=== PATIENT | female | born 1970 | race Caucasian/White ===

== ENCOUNTER 2017-03-02 12:40 | Emergency (ER) | payer BC ==
--- NOTE | 2017-03-02 12:58 | Emergency Department Record ---
History of Present Illness - General Chief Complaint: Arrythmia/Palpitations Stated Complaint: A-fib Time Seen by Provider: 03/02/17 12:52 Source: Patient Mode of Arrival: Ambulatory Limitations: No limitations - History of Present Illness Initial Comments: 46 yo female presents to ED with a CC of palpitations and fatigue that began 2 days ago, worsened this morning. Patient reports a history of intermittent palpitations that she is able to resolve by bearing down, is unaware of previous diagnosis of SVT or atrial fibrillation. Patient reports a history of aortic stenosis s/p repair as well as mechanical heart valve replacement. MD Complaint: Palpitations Onset/Timin -: Minutes(s) Context: Occurred during rest Arrythmia History: Atrial fibrillation - Related Data Home Medications Medication Instructions Recorded Confirmed Last Taken Aspirin Chewable 81 mg PO DAILY 04/13/14 03/02/17 1 Day Ago Diltiazem HCl [Diltiazem 12Hr ER] 60 mg PO DAILY 04/13/14 03/02/17 1 Day Ago Metoprolol Succinate 25 mg PO DAILY 04/13/14 03/02/17 1 Day Ago Warfarin Sodium 2.5 mg PO DAILY 04/13/14 03/02/17 1 Day Ago Alprazolam [Alprazolam] 0.5 mg PO ASDIR PRN 12/09/14 03/02/17 1 Day Ago Allergies Allergy/AdvReac Type Severity Reaction Status Date / Time metoclopramide HCl AdvReac ALTERED Verified 03/02/17 12:53 [From Reglan] MENTAL STATUS phenazopyridine HCl AdvReac NAUSEA AND Verified 03/02/17 12:53 [From Pyridium] VOMITING actavis Allergy RASH Uncoded 03/02/17 12:53 Travel Screening - Travel/Exposure Within Last 30 Days Have you traveled within the last 30 days?: No - Travel/Exposure Within Last Year Have you traveled outside the [place] in the last year?: No - Additonal Travel Details Have you been exposed to anyone with a communicable illness?: No - Travel Symptoms Symptom Screening: None Review of Systems Constitutional: Denies: Chills, Fever, Malaise, Night sweats Eyes: Denies: Eye discharge, Eye pain ENT: Denies: Congestion, Ear pain Respiratory: Denies: Cough, Dyspnea Cardiovascular: Reports: Palpitations. Denies: Chest pain, Dyspnea on exertion Endocrine: Denies: Fatigue, Heat or cold intolerance Gastrointestinal: Denies: Abdominal pain, Nausea, Vomiting Genitourinary: Denies: Dysuria, Frequency, Incontinence, Retention Musculoskeletal: Denies: Arthralgia, Back pain, Gout, Joint swelling Skin: Denies: Bruising, Change in color Neurological: Denies: Abnormal gait, Confusion, Headache, Seizure Psychiatric: Denies: Anxiety Hematological/Lymphatic: Reports: Easy bleeding. Denies: Anemia, Blood Clots Past Medical History - SOCIAL HISTORY Smoking Status: Current every day smoker Alcohol Use: Occassional Drug Use: None - RESPIRATORY Hx Respiratory Disorders: No - CARDIOVASCULAR Hx Cardio Disorders: Yes Hx Irregular Heartbeat: Yes (A-fib) Hx Palpitations: Yes Comment:: aortic stenosis, aneurysm - NEURO Hx Neuro Disorders: No - GI Hx GI Disorders: Yes Hx Reflux: Yes - Hx Genitourinary Disorders: No - ENDOCRINE Hx Endocrine Disorders: No - MUSCULOSKELETAL Hx Musculoskeletal Disorders: No - PSYCH Hx Psych Problems: No - HEMATOLOGY/ONCOLOGY Hx Hematology/Oncology Disorders: No Family Medical History Any Significant Family History?: Yes Hx Heart Disease: Brother/Sister Physical Exam - General General Appearance: Alert, Oriented x3, Cooperative, Moderate distress Limitations: No limitations - Head Head exam: Atraumatic, Normocephalic, Normal inspection Head exam detail: negative: Abrasion, Contusion, Mena's sign, General tenderness, Hematoma, Laceration - Eye Eye exam: Normal appearance. negative: Conjunctival injection, Periorbital swelling, Periorbital tenderness, Scleral icterus - ENT Ear exam: negative: Auricular hematoma, Auricular trauma Nasal Exam: negative: Active bleeding, Discharge, Dried blood, Foreign body Mouth exam: negative: Drooling, Laceration, Muffled voice, Tongue elevation - Neck Neck exam: Normal inspection. negative: Meningismus, Tenderness - Respiratory Respiratory exam: Normal lung sounds bilaterally. negative: Rales, Respiratory distress, Rhonchi, Stridor - Cardiovascular Cardiovascular Exam: Normal rhythm, Normal heart sounds, Tachycardia - GI/Abdominal GI/Abdominal exam: Soft. negative: Rebound, Rigid, Tenderness - Rectal Rectal exam: Deferred - exam: Deferred - Extremities Extremities exam: Normal inspection. negative: Calf tenderness, Pedal edema, Tenderness - Back Back exam: Denies: CVA tenderness (R), CVA tenderness (L) - Neurological Neurological exam: Alert, Normal gait, Oriented X3 - Psychiatric Psychiatric exam: Anxious - Skin Skin exam: Normal color. negative: Abrasion Type of lesion: negative: abrasion Course Vital Signs 03/02/17 12:42 Temperature 97.5 F L Pulse Rate 183 H Respiratory 24 Rate Blood Pressure 162/110 Pulse Ox 99 - Reevaluation(s) Reevaluation #1: 03/02/17 12:52 EKG: SVT 188 Normal axis, normal intervals ST depression V3-V6, rate related While talking with the patient during IV start, patient converted to NSR. repeat EKG ordered. Reevaluation #2: 03/02/17 13:04 Repeat EKG: NSR 83 Normal axis, Normal intervals Mild ST depression V5, V6 Unchanged from 04/13/14 Reevaluation #3: 03/02/17 13:33 Labs reviewed, Hgb 11.5, INR 2.42, electrolytes and magnesium are normal. Troponin pending. Reevaluation #4: 03/02/17 13:48 Troponin resulted and is negative. Patient has not attempted to go back into SVT while in the ED, and appears stable for discharge at this time with instructions to call Dr. Loredo for follow-up in 1-3 days as he may want to increase either the patient's Diltiazem or Metoprolol at home. Patient appears stable for discharge at this time. Medical Decision Making - Lab Data Result diagrams: 03/02/17 12:52 03/02/17 12:52 Critical Care Time Critical Care Time: Yes Total Critical Care Time: 35 Critical Care Time: Diagnosis and treatment for SVT, unstable heart rate. Disposition Disposition: Discharge Clinical Impression: SVT (supraventricular tachycardia) Disposition: Home, Self-Care Condition: (2) Stable Instructions: Supraventricular Tachycardia (ED) Additional Instructions: return to ED if your symptoms worsen or if you have any concerns. Follow-up with Dr. Loredo in 1-3 days as directed. Forms: Patient Portal Access Time of Disposition: 13:50
[2017-03-02] MEDS ORDERED: 0.9 % SODIUM CHLORIDE 1000ML 500 ML IV SCH (13:00)
[2017-03-02 13:04] LABS: BASO % 0.2 % (0-6); EOS % 1.1 % (0-6); GRAN % 61.3 % (47-80); HEMATOCRIT 37.5 % (35.0-47.0); HEMOGLOBIN 11.5 gm/dl (11.6-16.0); MEAN CELL VOLUME 76.2 fl (81-97); MEAN CORPUSCULAR HGB CONC 30.7 g/dl (32-36); MEAN PLATELET VOLUME 10.4 fl (7.4-10.4); MONO % 13.4 % (0-9); PLATELET COUNT 478 K/uL (130-400); RED BLOOD COUNT 4.92 M/uL (3.80-5.40); RED CELL DISTRIBUTION WIDTH 18.1 % (11.5-14.5); WHITE BLOOD COUNT W/O DIFF 10.2 K/uL (4.2-12.2)
[2017-03-02 13:05] LABS: MEAN CORPUSCULAR HEMOGLOBIN 23.3 pg (27-33)
[2017-03-02 13:15] LABS: ALB/GLOB RATIO 1.4 (1.1-1.8); ALBUMIN 4.5 gm/dL (3.5-5.0); ALKALINE PHOSPHATASE 116 U/L (38-126); ALT/SGPT 39 U/L (9-52); AST/SGOT 43 U/L (14-36); BILIRUBIN,TOTAL 0.98 mg/dL (0.2-1.3); BLOOD UREA NITROGEN 7 mg/dL (7-17); CREATININE 0.6 mg/dL (0.52-1.04); EST GLOMERULAR FILTRATION RATE > 60 ml/min; GLUCOSE,RANDOM 125 mg/dL (70-110); INR 2.42; PROTHROMBIN TIME (PATIENT) 27.4 SECONDS (9.5-12.1); TOTAL PROTEIN 7.8 gm/dL (6.3-8.2)
[2017-03-02 13:24] LABS: CREATINE PHOSPHOKINASE 90 U/L (30-135)
[2017-03-02 13:37] LABS: CKMB 0.9 ug/L (0-6); TROPONIN I < 0.012 ng/mL (0.00-0.034)
== END 2017-03-02 14:11 | disposition home or self-care (01) ==
LOC: ER 12:40
DX: I47.1 Supraventricular tachycardia (principal); R53.83 Other fatigue; Z95.2 Presence of prosthetic heart valve; Z79.01 Long term (current) use of anticoagulants; F17.210 Nicotine dependence, cigarettes, uncomplicated
CPT/HCPCS: 80053; 82550; 82553; 83735; 84484; 85025; 85610; 93005; 93010; 99285; J7030

== ENCOUNTER 2017-04-04 23:33 | Emergency (ER) | payer BC ==
[2017-04-04] MEDS ORDERED: METHYLPREDNISOLONE PF 125MG/VIAL IVP ONE (23:35)
[2017-04-04] MEDS ORDERED: IPRATROPIUM/ALBUTEROL (0.5MG/3MG) NEB INH ONE (23:35)
[2017-04-04] MEDS ORDERED: 0.9 % SODIUM CHLORIDE 1,000 ML BAG IV ONE (23:37)
--- NOTE | 2017-04-04 23:44 | Emergency Department Record ---
History of Present Illness - General Stated Complaint: SERGIO Source: Patient - History of Present Illness Initial Comments: The patient states that about a week ago she developed a chest cold. Last night she began to have SERGIO which worsened into the night causing her even to vomit. She is a smoker and has had a history of pneumonia in the remote past. She came here tonight because the SERGIO is continuing to worsen. PMH includes aortic stenosis repair, in 1992 at [facility]; 2009 aortic root surgery for repair of an aneurysm and also a mechanical valve for which she now takes coumadin. she also wilson had an episode of SVT and a. fib in the past. MD Complaint: Shortness of breath - Related Data Home Medications Medication Instructions Recorded Confirmed Last Taken Aspirin Chewable 81 mg PO DAILY 04/13/14 04/04/17 1 Day Ago ~03/01/17 Diltiazem HCl [Diltiazem 12Hr ER] 60 mg PO DAILY 04/13/14 04/04/17 1 Day Ago ~03/01/17 Metoprolol Succinate 25 mg PO DAILY 04/13/14 04/04/17 1 Day Ago ~03/01/17 Warfarin Sodium 2.5 mg PO DAILY 04/13/14 04/04/17 1 Day Ago ~03/01/17 Alprazolam [Alprazolam] 0.5 mg PO ASDIR PRN 12/09/14 04/04/17 1 Day Ago ~03/01/17 Previous Rx's Medication Instructions Recorded Amoxicillin/Potassium Clav 1 each PO BID #20 tablet 04/05/17 [Augmentin 500-125 Tablet] Allergies Allergy/AdvReac Type Severity Reaction Status Date / Time metoclopramide HCl AdvReac ALTERED Verified 03/02/17 12:53 [From Reglan] MENTAL STATUS phenazopyridine HCl AdvReac NAUSEA AND Verified 03/02/17 12:53 [From Pyridium] VOMITING actavis Allergy RASH Uncoded 03/02/17 12:53 Review of Systems Reviewed: No additional complaints except as noted below Constitutional: Reports: As per HPI. Denies: Chills, Fever, Malaise, Night sweats, Weakness, Weight change Eyes: Reports: As per HPI. Denies: Eye discharge, Eye pain, Photophobia, Vision change ENT: Reports: As per HPI. Denies: Congestion, Dental pain, Ear pain, Epistaxis , Hearing loss, Throat pain Respiratory: Reports: As per HPI. Denies: Cough, Dyspnea, Hemoptysis, Stridor, Wheezes Cardiovascular: Reports: As per HPI. Denies: Arrhythmia, Chest pain, Dyspnea on exertion, Edema, Murmurs, Orthopnea, Palpitations, Paroxysmal nocturnal dyspnea, Rheumatic Fever, Syncope Endocrine: Reports: As per HPI. Denies: Fatigue, Heat or cold intolerance, Polydipsia, Polyuria Gastrointestinal: Reports: As per HPI. Denies: Abdominal pain, Constipation, Diarrhea, Hematemesis, Hematochezia, Melena, Nausea, Vomiting Genitourinary: Reports: As per HPI. Denies: Abnormal menses, Discharge, Dyspareunia, Dysuria, Frequency, Hematuria, Incontinence, Retention, Urgency Musculoskeletal: Reports: As per HPI. Denies: Arthralgia, Back pain, Gout, Joint swelling, Myalgia, Neck pain Skin: Reports: As per HPI. Denies: Bruising, Change in color, Change in hair/ nails, Lesions, Pruritus, Rash Neurological: Reports: As per HPI. Denies: Abnormal gait, Confusion, Headache, Numbness, Paresthesias, Seizure, Tingling, Tremors, Vertigo, Weakness Psychiatric: Reports: As per HPI. Denies: Anxiety, Auditory hallucinations, Depression, Homicidal thoughts, Suicidal thoughts, Visual hallucinations Hematological/Lymphatic: Reports: As per HPI. Denies: Anemia, Blood Clots, Easy bleeding, Easy bruising, Swollen glands Past Medical History - SOCIAL HISTORY Smoking Status: Current every day smoker Drug Use: None - RESPIRATORY Hx Respiratory Disorders: No - CARDIOVASCULAR Hx Cardio Disorders: Yes Hx Irregular Heartbeat: Yes (A-fib) Hx Palpitations: Yes Comment:: aortic stenosis, aneurysm - NEURO Hx Neuro Disorders: No - GI Hx GI Disorders: Yes Hx Reflux: Yes - Hx Genitourinary Disorders: No - ENDOCRINE Hx Endocrine Disorders: No - MUSCULOSKELETAL Hx Musculoskeletal Disorders: No - PSYCH Hx Psych Problems: No - HEMATOLOGY/ONCOLOGY Hx Hematology/Oncology Disorders: No Family Medical History Hx Heart Disease: Brother/Sister Physical Exam - General General Appearance: Alert, Oriented x3, Cooperative, Severe distress (unable to speak more that 2-3 words breathless upon arrival ) - Head Head exam: Normal inspection - Eye Eye exam: Normal appearance, PERRL Pupils: Normal accommodation - ENT ENT exam: Normal exam, Mucous membranes moist, Normal external ear exam, Normal orophraynx, TM's normal bilaterally Ear exam: Normal external inspection. negative: External canal tenderness Nasal Exam: Normal inspection. negative: Discharge, Sinus tenderness Mouth exam: Normal external inspection, Tongue normal Teeth exam: Normal inspection. negative: Dental caries Throat exam: Normal inspection. negative: Tonsillar erythema, Tonsillar exudate - Neck Neck exam: Normal inspection, Full ROM. negative: Tenderness - Respiratory Respiratory exam: Accessory muscle use, Decreased breath sounds, Prolonged expiratory, Respiratory distress, Wheezes (throughout all lung gutierres), Other ( tachypnea) - Cardiovascular Cardiovascular Exam: Regular rate, Normal rhythm, Normal heart sounds - GI/Abdominal GI/Abdominal exam: Soft, Normal bowel sounds - Rectal Rectal exam: Deferred - exam: Deferred - Extremities Extremities exam: Normal inspection, Full ROM, Normal capillary refill. negative: Calf tenderness, Pedal edema, Tenderness - Back Back exam: Reports: Normal inspection, Full ROM. Denies: Muscle spasm, Rash noted, Tenderness - Neurological Neurological exam: Alert, Normal gait, Oriented X3, Reflexes normal - Psychiatric Psychiatric exam: Normal affect, Normal mood - Skin Skin exam: Dry, Intact, Normal color, Warm Course - Reevaluation(s) Reevaluation #1: Repeat BS's after Duoneb shows tightness nearly gone, only a rare end expiratory wheeze, and patient able to give full history and ambulate to and from bathroom without difficulty. 04/05/17 00:15 Reevaluation #2: Patient is very familiar with regulating her coumadin level as she has been on this for years. She denies blood in her vomit from last evening, and denies having black or bloody stools. She is unsure what her HG usually is but is aware she now is anemic at 9.7. She will follow up with Dr. Funez her PCP Thursday for recheck of her level and hold her morning coumadin doses until after rechecked, as well as take 5 mg Vit K prior to DC now. "this is not my first rodeo." 04/05/17 01:04 Medical Decision Making - Management Options MDM Management: No Additional Work-up Planned - Data Complexity MDM Data: Labs Ordered and/or Reviewed, X-Ray Ordered and/or Reviewed (CXR two view: Neg per ED physician) - Lab Data Result diagrams: 04/04/17 23:55 04/04/17 23:55 - EKG Data -: EKG Interpreted by Me EKG: No Acute Changes (no prior available) Disposition Disposition: Discharge Clinical Impression: Bronchitis Hyperactive airway disease Qualifiers: Asthma severity: mild intermittent Asthma complication type: uncomplicated Qualified Code(s): J45.20 - Mild intermittent asthma, uncomplicated Disposition: Home, Self-Care Condition: (1) Good Instructions: Acute Bronchitis (ED), Dyspnea (ED), Bronchospasm (ED) Additional Instructions: Hold coumadin dose for 2 days. Take antibiotics as directed until gone. Follow up with [facility] as previously arranged 04-16-17. Discontinue smoking completely and permanently. Recheck with PCP Dr. Funez Thursday04-05-17 for recheck of coumadin level without fail. Prescriptions: Amoxicillin/Potassium Clav [Augmentin 500-125 Tablet] 1 each PO BID #20 tablet
[2017-04-05 00:05] LABS: BASO % 0.2 % (0-6); GRAN % 64.5 % (47-80); HEMATOCRIT 32.8 % (35.0-47.0); HEMOGLOBIN 9.7 gm/dl (11.6-16.0); LYMPH % 18.9 % (16-45); MEAN CELL VOLUME 77.4 fl (81-97); MEAN CORPUSCULAR HGB CONC 29.6 g/dl (32-36); MEAN PLATELET VOLUME 10.5 fl (7.4-10.4); MONO % 14.4 % (0-9); PLATELET COUNT 295 K/uL (130-400); RED BLOOD COUNT 4.24 M/uL (3.80-5.40); RED CELL DISTRIBUTION WIDTH 17.9 % (11.5-14.5); WHITE BLOOD COUNT W/O DIFF 9.3 K/uL (4.2-12.2)
[2017-04-05 00:06] LABS: MEAN CORPUSCULAR HEMOGLOBIN 22.8 pg (27-33); URINE APPEARANCE CLEAR; URINE BILIRUBIN NEGATIVE (NEGATIVE); URINE BLOOD TRACE-I (NEGATIVE); URINE COLOR YELLOW; URINE GLUCOSE (UA) NEGATIVE (NEGATIVE); URINE KETONE NEGATIVE (NEGATIVE); URINE LEUKOCYTE ESTERASE NEGATIVE (NEGATIVE); URINE NITRITE NEGATIVE (NEGATIVE); URINE PROTEIN NEGATIVE (NEGATIVE); URINE UROBILINOGEN 0.2 E.U./dL (0.20 - 1.00)
[2017-04-05 00:08] LABS: HCG,QUALITATIVE URINE NEGATIVE (NEGATIVE)
[2017-04-05 00:16] LABS: URINE EPITHELIAL CELLS 0 - 2 (FEW); URINE RBC 0 - 2 (NONE SEEN); URINE WBC 0 - 2 (0-2/hpf)
[2017-04-05 00:21] LABS: BLOOD UREA NITROGEN 9 mg/dL (7-17); CREATININE 0.6 mg/dL (0.52-1.04); EST GLOMERULAR FILTRATION RATE > 60 ml/min; GLUCOSE,RANDOM 119 mg/dL (70-110)
[2017-04-05 00:33] LABS: TROPONIN I < 0.012 ng/mL (0.00-0.034)
[2017-04-05] MEDS ORDERED: ALBUTEROL SULFATE (0.083%) 2.5 MG/3 ML NEB INH ONE (00:44)
[2017-04-05] MEDS ORDERED: AMOXICILLIN 500MG CAPSULE PO ONE (00:48)
[2017-04-05 00:51] LABS: PARTIAL THROMBOPLASTIN TIME 50.3 SECONDS (24.5-39.1)
[2017-04-05 00:54] LABS: INR 5.59; PROTHROMBIN TIME (PATIENT) 63.2 SECONDS (9.5-12.1)
[2017-04-05] MEDS ORDERED: PHYTONADIONE 10 MG/ML AMPUL PO ONE (01:00)
== END 2017-04-05 01:21 | disposition home or self-care (01) ==
LOC: ER 23:33
DX: J20.9 Acute bronchitis, unspecified (principal); J45.20 Mild intermittent asthma, uncomplicated; F17.210 Nicotine dependence, cigarettes, uncomplicated; I48.91 Unspecified atrial fibrillation; Z79.01 Long term (current) use of anticoagulants
CPT/HCPCS: 71020; 80048; 81001; 81025; 84484; 85025; 85379; 85610; 85730; 93005; 93010; 94640; 96374; 99284; J2930; J7613

== ENCOUNTER 2017-04-08 04:35 | Emergency (ER) | payer BC ==
--- NOTE | 2017-04-08 05:05 | Emergency Department Record ---
History of Present Illness - General Stated Complaint: CONSTIPATION/VOMITING Time Seen by Provider: 04/08/17 04:38 Source: Patient Mode of Arrival: Ambulatory Limitations: No limitations - History of Present Illness Initial Comments: 46 yo female presents with nausea, vomiting and loose stools since yesterday evening. She had not had a bowel movement for about one week. She was given a "cocktail" of medications by RN co-workers for constipation. With in one hour of the medications she developed nausea, vomiting and loose green watery stools that are greenish. No solid stools. She presents tonight with continued nausea , reflux, vomiting, and loose stools. 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 She has had 2 cardiac surgery for valve replacement and aneurysm. Last surgery was in 2007 [facility]. She denies any abdominal surgery She has had a cough for about one week. She was seen in the ED at that time. Her INR was elevated and she was anemic. She as not follow up with her doctor or had her labs rechecked since started the antibiotics. No blood noted in the stools. MD Complaint: Other -: Days(s) (1) Location: Diffuse Radiation: Epigastric Migration to: Epigastric Quality: Cramping Consistency: Constant Improves With: Nothing Worsens With: Other (worsened after taking the laxatives) Associated Symptoms: Anorexia, Diarrhea, Vomiting - Related Data Home Medications Medication Instructions Recorded Confirmed Last Taken Aspirin Chewable 81 mg PO DAILY 04/13/14 04/04/17 1 Day Ago ~03/01/17 Diltiazem HCl [Diltiazem 12Hr ER] 60 mg PO DAILY 04/13/14 04/04/17 1 Day Ago ~03/01/17 Metoprolol Succinate 25 mg PO DAILY 04/13/14 04/04/17 1 Day Ago ~03/01/17 Warfarin Sodium 2.5 mg PO DAILY 04/13/14 04/04/17 1 Day Ago ~03/01/17 Alprazolam [Alprazolam] 0.5 mg PO ASDIR PRN 12/09/14 04/04/17 1 Day Ago ~03/01/17 Previous Rx's Medication Instructions Recorded Amoxicillin/Potassium Clav 1 each PO BID #20 tablet 04/05/17 [Augmentin 500-125 Tablet] Enoxaparin Sodium [Lovenox] 80 mg SQ BID #6 ml 04/08/17 Allergies Allergy/AdvReac Type Severity Reaction Status Date / Time metoclopramide HCl AdvReac ALTERED Verified 03/02/17 12:53 [From Reglan] MENTAL STATUS phenazopyridine HCl AdvReac NAUSEA AND Verified 03/02/17 12:53 [From Pyridium] VOMITING actavis Allergy RASH Uncoded 03/02/17 12:53 Review of Systems Constitutional: Denies: Chills, Fever, Malaise, Weakness Eyes: Denies: Eye discharge ENT: Denies: Congestion, Ear pain, Epistaxis Respiratory: Reports: Cough. Denies: Dyspnea, Hemoptysis, Stridor, Wheezes Cardiovascular: Denies: Chest pain, Palpitations, Syncope Endocrine: Denies: Fatigue, Polydipsia, Polyuria Gastrointestinal: Reports: As per HPI, Abdominal pain, Constipation, Diarrhea, Nausea, Vomiting. Denies: Hematemesis, Hematochezia Genitourinary: Denies: Dysuria, Hematuria, Urgency Musculoskeletal: Denies: Arthralgia, Back pain, Neck pain Skin: Denies: Bruising, Change in color, Rash Neurological: Denies: Headache, Weakness Psychiatric: Denies: Anxiety Hematological/Lymphatic: Denies: Blood Clots, Easy bleeding, Easy bruising, Swollen glands Past Medical History - SOCIAL HISTORY Smoking Status: Current every day smoker Drug Use: None - RESPIRATORY Hx Respiratory Disorders: No - CARDIOVASCULAR Hx Cardio Disorders: Yes Hx Irregular Heartbeat: Yes (A-fib) Hx Palpitations: Yes Comment:: aortic stenosis, aneurysm - NEURO Hx Neuro Disorders: No - GI Hx GI Disorders: Yes Hx Reflux: Yes - Hx Genitourinary Disorders: No - ENDOCRINE Hx Endocrine Disorders: No - MUSCULOSKELETAL Hx Musculoskeletal Disorders: No - PSYCH Hx Psych Problems: No - HEMATOLOGY/ONCOLOGY Hx Hematology/Oncology Disorders: No Family Medical History Hx Heart Disease: Brother/Sister Physical Exam - General General Appearance: Alert, Oriented x3, Cooperative, No acute distress Limitations: No limitations - Head Head exam: Normal inspection - Eye Eye exam: Normal appearance, PERRL. negative: Conjunctival injection, Periorbital swelling - ENT ENT exam: Normal exam, Mucous membranes moist Ear exam: Normal external inspection Nasal Exam: Normal inspection Mouth exam: Normal external inspection Teeth exam: Normal inspection Throat exam: Normal inspection - Neck Neck exam: Normal inspection, Full ROM. negative: Tenderness - Respiratory Respiratory exam: Decreased breath sounds, Wheezes (mild expiratory wheeze). negative: Accessory muscle use, Prolonged expiratory, Respiratory distress, Rhonchi, Stridor - Cardiovascular Cardiovascular Exam: Regular rate, Normal rhythm, Normal heart sounds, Diastolic murmur, Systolic murmur Peripheral Pulses: 2+: Radial (R), Radial (L) - GI/Abdominal GI/Abdominal exam: Soft, Tenderness. negative: Distended, Guarding, Rebound - Rectal Rectal exam: Deferred - exam: Deferred - Extremities Extremities exam: Normal inspection, Full ROM, Normal capillary refill. negative: Pedal edema, Tenderness - Back Back exam: Reports: Normal inspection, Full ROM. Denies: CVA tenderness (R), CVA tenderness (L), Muscle spasm, Rash noted, Tenderness - Neurological Neurological exam: Alert, Normal gait, Oriented X3 - Psychiatric Psychiatric exam: Normal affect, Normal mood - Skin Skin exam: Dry, Intact, Normal color, Warm Course Vital Signs 04/08/17 04:48 Temperature 98.4 F Pulse Rate [ 72 Pulse Ox Probe] Respiratory 18 Rate Blood Pressure 144/75 [Left Arm] Pulse Ox 97 - Reevaluation(s) Reevaluation #1: 04/08/17 05:06 EMR reviewed ER visit on 04/04/17 and 03/02/17 Reevaluation #2: The labs were reviewed No acute changes on the CMP INR is low at 1.3 Lovenox will be ordered The patients cough improved with the Duoneb. 04/08/17 05:50 The patient was informed regarding her INR 04/08/17 06:14 Reevaluation #3: The AAS was reviewed No definite infiltrate on the CXR On the up right abdomen she has multiple AFL Given her vomiting and pain a CT scan will be ordered 04/08/17 06:44 Reevaluation #4: The patient was turned over at the bedside with Dr Crane We discussed the INR, cough, vomiting and abdominal pain with a plan for CT of the Abdomen and pelvis See Dr Crane's note for further results and documentation 04/08/17 07:32 Medical Decision Making - Lab Data Result diagrams: 04/08/17 05:18 04/08/17 05:18 Disposition Clinical Impression: Vomiting and diarrhea, Abdominal pain, Bronchitis, Subtherapeutic anticoagulation Instructions: Constipation (ED) Additional Instructions: Call Dr Cooper for close follow up of you INR Follow up as scheduled Return if fever, pain, vomiting or concerns You will need your INR check in 24 to 48 hours Take the Lovenox twice daily Prescriptions: Enoxaparin Sodium [Lovenox] 80 mg SQ BID #6 ml
[2017-04-08] MEDS: ONDANSETRON HCL IV 4 MG/2 ML VIAL IVP ONE (05:20)
[2017-04-08] MEDS: 0.9 % SODIUM CHLORIDE 1,000 ML BAG IV ONE (05:20)
[2017-04-08 05:29] LABS: BASO % 0.3 % (0-6); GRAN % 57.8 % (47-80); HEMATOCRIT 32.3 % (35.0-47.0); HEMOGLOBIN 9.6 gm/dl (11.6-16.0); LYMPH % 25.2 % (16-45); MEAN CELL VOLUME 77.3 fl (81-97); MEAN CORPUSCULAR HGB CONC 29.7 g/dl (32-36); MEAN PLATELET VOLUME 10.7 fl (7.4-10.4); MONO % 13.7 % (0-9); PLATELET COUNT 373 K/uL (130-400); RED BLOOD COUNT 4.18 M/uL (3.80-5.40); RED CELL DISTRIBUTION WIDTH 17.7 % (11.5-14.5); WHITE BLOOD COUNT W/O DIFF 10.2 K/uL (4.2-12.2)
[2017-04-08] MEDS: IPRATROPIUM/ALBUTEROL (0.5MG/3MG) NEB INH ONE (05:29)
[2017-04-08 05:31] LABS: MEAN CORPUSCULAR HEMOGLOBIN 22.9 pg (27-33)
[2017-04-08 05:40] LABS: INR 1.3; PARTIAL THROMBOPLASTIN TIME 27.3 SECONDS (24.5-39.1); PROTHROMBIN TIME (PATIENT) 14.7 SECONDS (9.5-12.1)
[2017-04-08 05:41] LABS: ALB/GLOB RATIO 1.2 (1.1-1.8); ALBUMIN 3.6 gm/dL (3.5-5.0); ALKALINE PHOSPHATASE 80 U/L (38-126); ALT/SGPT 32 U/L (9-52); ANION GAP 4.3 (7-16); AST/SGOT 40 U/L (14-36); BLOOD UREA NITROGEN 10 mg/dL (7-17); CARBON DIOXIDE 24.7 mmol/L (22-30); CREATININE 0.6 mg/dL (0.52-1.04); EST GLOMERULAR FILTRATION RATE > 60 ml/min; GLUCOSE,RANDOM 112 mg/dL (70-110); LIPASE 71 U/L (23-300); TOTAL PROTEIN 6.7 gm/dL (6.3-8.2)
[2017-04-08] MEDS ORDERED: ENOXAPARIN 80 MG/0.8 ML SYR SQ STA (05:51)
[2017-04-08] MEDS ORDERED: MAGNESIUM HYDROXIDE/AL HYDROX 30 ML, LIDOCAINE VISC 2% 200 MG PO ONE ×2 (06:02)
[2017-04-08] MEDS: METHYLPREDNISOLONE PF 125MG/VIAL IVP ONE (06:09)
[2017-04-08] MEDS: MAGNESIUM HYDROXIDE/AL HYDROX 30 ML, LIDOCAINE VISC 2% 200 MG PO ONE ×2 (06:09)
[2017-04-08] MEDS: ENOXAPARIN 100 MG/ML SYR SQ ONE (06:12)
--- NOTE | 2017-04-08 09:05 | Emergency Department Record ---
History of Present Illness - General Chief complaint: General Stated complaint: CONSTIPATION/VOMITING Time Seen by Provider: 04/08/17 04:38 Source: Patient Mode of Arrival: Ambulatory Limitations: No limitations - History of Present Illness Initial comments: reviewed Manuel chart and Dr. frazier's chart and her abdominal xrays and showed air fluid levels and CT is pending. Patient has a raspy cough and congestion . Abd tenderness and patient given solumedrol 125 mg at 6 am. lovenox shot given. -: Days(s) (1) Consistency: Constant - Related Data Home Medications Medication Instructions Recorded Confirmed Last Taken Aspirin Chewable 81 mg PO DAILY 04/13/14 04/04/17 1 Day Ago ~03/01/17 Diltiazem HCl [Diltiazem 12Hr ER] 60 mg PO DAILY 04/13/14 04/04/17 1 Day Ago ~03/01/17 Metoprolol Succinate 25 mg PO DAILY 04/13/14 04/04/17 1 Day Ago ~03/01/17 Warfarin Sodium 2.5 mg PO DAILY 04/13/14 04/04/17 1 Day Ago ~03/01/17 Alprazolam [Alprazolam] 0.5 mg PO ASDIR PRN 12/09/14 04/04/17 1 Day Ago ~03/01/17 Previous Rx's Medication Instructions Recorded Amoxicillin/Potassium Clav 1 each PO BID #20 tablet 04/05/17 [Augmentin 500-125 Tablet] Enoxaparin Sodium [Lovenox] 80 mg SQ BID #6 ml 04/08/17 Prednisone [Prednisone 20Mg] 20 mg PO BIDWM #10 tab 04/08/17 Tamsulosin HCl [Flomax] 0.4 mg PO DAILY #6 cap.er.24h 04/08/17 Allergies Allergy/AdvReac Type Severity Reaction Status Date / Time metoclopramide HCl AdvReac ALTERED Verified 03/02/17 12:53 [From Reglan] MENTAL STATUS phenazopyridine HCl AdvReac NAUSEA AND Verified 03/02/17 12:53 [From Pyridium] VOMITING actavis Allergy RASH Uncoded 03/02/17 12:53 Travel Screening - Travel/Exposure Within Last 30 Days Have you traveled within the last 30 days?: No - Travel Symptoms Symptom Screening: None Review of Systems Constitutional: Denies: Chills, Fever, Malaise, Weakness Eyes: Denies: Eye discharge ENT: Denies: Congestion, Ear pain, Epistaxis Respiratory: Reports: Cough. Denies: Dyspnea, Hemoptysis, Stridor, Wheezes Cardiovascular: Denies: Chest pain, Palpitations, Syncope Endocrine: Denies: Fatigue, Polydipsia, Polyuria Gastrointestinal: Reports: As per HPI, Abdominal pain, Constipation, Diarrhea, Nausea, Vomiting. Denies: Hematemesis, Hematochezia Genitourinary: Denies: Dysuria, Hematuria, Urgency Musculoskeletal: Denies: Arthralgia, Back pain, Neck pain Skin: Denies: Bruising, Change in color, Rash Neurological: Denies: Headache, Weakness Psychiatric: Denies: Anxiety Hematological/Lymphatic: Denies: Blood Clots, Easy bleeding, Easy bruising, Swollen glands Past Medical History - SOCIAL HISTORY Smoking Status: Current every day smoker Drug Use: None - RESPIRATORY Hx Respiratory Disorders: No - CARDIOVASCULAR Hx Cardio Disorders: Yes Hx Irregular Heartbeat: Yes (A-fib) Hx Palpitations: Yes Comment:: aortic stenosis, aneurysm - NEURO Hx Neuro Disorders: No - GI Hx GI Disorders: Yes Hx Reflux: Yes - Hx Genitourinary Disorders: No - ENDOCRINE Hx Endocrine Disorders: No - MUSCULOSKELETAL Hx Musculoskeletal Disorders: No - PSYCH Hx Psych Problems: No - HEMATOLOGY/ONCOLOGY Hx Hematology/Oncology Disorders: No Family Medical History Hx Heart Disease: Brother/Sister Physical Exam - General Limitations: No limitations Course Vital Signs 04/08/17 04/08/17 04/08/17 04:48 05:01 06:36 Temperature 98.4 F 98.4 F Pulse Rate [ 72 65 Pulse Ox Probe] Respiratory 18 16 Rate Blood Pressure 144/75 124/71 [Left Arm] Pulse Ox 97 99 Medical Decision Making - Data Complexity MDM Data: Labs Ordered and/or Reviewed, X-Ray Ordered and/or Reviewed (CT scan mild right hydronephrosis and possible passed stone at the UVJ ) - Lab Data Result diagrams: 04/08/17 05:18 04/08/17 05:18 Lab Results 04/08/17 04/08/17 04/08/17 Range/Units 05:18 05:18 05:18 WBC 10.2 (4.2-12.2) K/uL RBC 4.18 (3.80-5.40) M/uL Hgb 9.6 L (11.6-16.0) gm/dl Hct 32.3 L (35.0-47.0) % MCV 77.3 L (81-97) fl MCH 22.9 L (27-33) pg MCHC 29.7 L (32-36) g/dl RDW 17.7 H (11.5-14.5) % Plt Count 373 (130-400) K/uL MPV 10.7 H (7.4-10.4) fl Gran % 57.8 (47-80) % Lymphocytes % 25.2 (16-45) % Monocytes % 13.7 H (0-9) % Eosinophils % 3.0 (0-6) % Basophils % 0.3 (0-6) % PT 14.7 H (9.5-12.1) SECONDS INR 1.30 APTT 27.30 (24.5-39.1) SECONDS Sodium 137 (136-145) mmol/L Potassium 4.3 (3.5-5.1) mmol/L Chloride 108 H (98-107) mmol/L Carbon Dioxide 24.7 (22-30) mmol/L Anion Gap 4.3 L (7-16) BUN 10 (7-17) mg/dL Creatinine 0.6 (0.52-1.04) mg/dL Estimated GFR > 60 ml/min Random Glucose 112 H (70-110) mg/dL Calcium 8.6 (8.5-10.1) mg/dL Total Bilirubin 0.70 (0.2-1.3) mg/dL AST 40 H (14-36) U/L ALT 32 (9-52) U/L Alkaline Phosphatase 80 (38-126) U/L Total Protein 6.7 (6.3-8.2) gm/dL Albumin 3.6 (3.5-5.0) gm/dL Globulin 3.1 (1.4-4.8) gm/dL Albumin/Globulin Ratio 1.2 (1.1-1.8) Lipase 71 (23-300) U/L Disposition Clinical Impression: Vomiting and diarrhea, Bronchitis, Subtherapeutic anticoagulation, Bronchitis, Wheezing Abdominal pain Qualifiers: Abdominal location: unspecified location Qualified Code(s): R10.9 - Unspecified abdominal pain Hydronephrosis Qualifiers: Hydronephrosis type: unspecified Qualified Code(s): N13.30 - Unspecified hydronephrosis Disposition: Home, Self-Care Instructions: Constipation (ED) Additional Instructions: Call Dr Cooper for close follow up of you INR Follow up as scheduled Return if fever, pain, vomiting or concerns You will need your INR check in 24 to 48 hours Take the Lovenox twice daily strain urine and save stone and give to your DR. for possibly passed kidney stone continue augmentin twice a day take prednisone twice a day for 5 days off work 2 days take vitamins with iron for anemia Prescriptions: Enoxaparin Sodium [Lovenox] 80 mg SQ BID #6 ml Prednisone [Prednisone 20Mg] 20 mg PO BIDWM #10 tab Tamsulosin HCl [Flomax] 0.4 mg PO DAILY #6 cap.er.24h Time of Disposition: 11:04
[2017-04-08 10:08] LABS: URINE APPEARANCE CLEAR; URINE BILIRUBIN NEGATIVE (NEGATIVE); URINE BLOOD NEGATIVE (NEGATIVE); URINE COLOR YELLOW; URINE GLUCOSE (UA) NEGATIVE (NEGATIVE); URINE KETONE NEGATIVE (NEGATIVE); URINE LEUKOCYTE ESTERASE NEGATIVE (NEGATIVE); URINE NITRITE NEGATIVE (NEGATIVE); URINE PROTEIN NEGATIVE (NEGATIVE); URINE UROBILINOGEN 0.2 E.U./dL (0.20 - 1.00)
[2017-04-08] MEDS: TAMSULOSIN HCL 0.4 MG CAP.ER.24H PO SCH (11:03)
== END 2017-04-08 11:29 | disposition home or self-care (01) ==
LOC: ER 04:35
DX: N13.30 Unspecified hydronephrosis (principal); R79.1 Abnormal coagulation profile; J20.9 Acute bronchitis, unspecified; R10.13 Epigastric pain; R11.2 Nausea with vomiting, unspecified; I48.91 Unspecified atrial fibrillation; R19.7 Diarrhea, unspecified; Q23.0 Congenital stenosis of aortic valve; Z79.01 Long term (current) use of anticoagulants; Z95.2 Presence of prosthetic heart valve; F17.210 Nicotine dependence, cigarettes, uncomplicated
CPT/HCPCS: 99284 ×2; 96374; 96372; 96375; 96361; 83690; 85025; 85730; 85610; 80053; 81003; 74022; 74177; 94640; Q9967; J2405; J1650; J2930; J7030

== ENCOUNTER 2017-04-12 01:40 | Emergency (ER) | payer BC ==
--- NOTE | 2017-04-12 02:13 | Emergency Department Record ---
History of Present Illness - General Chief complaint: GI Bleed Stated complaint: "COFFEE GROUND STOOLS" Time Seen by Provider: 04/12/17 01:47 Source: Patient Mode of Arrival: Ambulatory Limitations: No limitations - History of Present Illness Initial comments: pt has been having black or green 'coffee ground ' stool. she was concerned her inr might be too high. MD complaint: Melena Onset/Timin -: Days(s) Radiation: None Consistency: Other Improves with: None Worsens with: None Context: Blood thinners Associated Symptoms: Denies other symptoms - Related Data Home Medications Medication Instructions Recorded Confirmed Last Taken Aspirin Chewable 81 mg PO DAILY 04/13/14 04/12/17 1 Day Ago ~03/01/17 Diltiazem HCl [Diltiazem 12Hr ER] 60 mg PO DAILY 04/13/14 04/12/17 1 Day Ago ~03/01/17 Metoprolol Succinate 25 mg PO DAILY 04/13/14 04/12/17 1 Day Ago ~03/01/17 Warfarin Sodium 2.5 mg PO DAILY 04/13/14 04/12/17 1 Day Ago ~03/01/17 Alprazolam [Alprazolam] 0.5 mg PO ASDIR PRN 12/09/14 04/12/17 1 Day Ago ~03/01/17 Previous Rx's Medication Instructions Recorded Amoxicillin/Potassium Clav 1 each PO BID #20 tablet 04/05/17 [Augmentin 500-125 Tablet] Enoxaparin Sodium [Lovenox] 80 mg SQ BID #6 ml 04/08/17 Prednisone [Prednisone 20Mg] 20 mg PO BIDWM #10 tab 04/08/17 Tamsulosin HCl [Flomax] 0.4 mg PO DAILY #6 cap.er.24h 04/08/17 Allergies Allergy/AdvReac Type Severity Reaction Status Date / Time metoclopramide HCl AdvReac ALTERED Verified 03/02/17 12:53 [From Reglan] MENTAL STATUS phenazopyridine HCl AdvReac NAUSEA AND Verified 03/02/17 12:53 [From Pyridium] VOMITING actavis Allergy RASH Uncoded 03/02/17 12:53 Travel Screening - Travel/Exposure Within Last 30 Days Have you traveled within the last 30 days?: No - Travel/Exposure Within Last Year Have you traveled outside the [place] in the last year?: No - Additonal Travel Details Have you been exposed to anyone with a communicable illness?: No - Travel Symptoms Symptom Screening: None Review of Systems Reviewed: No additional complaints except as noted below Constitutional: Reports: As per HPI. Denies: Chills, Fever, Malaise, Night sweats, Weakness, Weight change Eyes: Reports: As per HPI. Denies: Eye discharge, Eye pain, Photophobia, Vision change ENT: Reports: As per HPI. Denies: Congestion, Dental pain, Ear pain, Epistaxis , Hearing loss, Throat pain Respiratory: Reports: As per HPI. Denies: Cough, Dyspnea, Hemoptysis, Stridor, Wheezes Cardiovascular: Reports: As per HPI. Denies: Arrhythmia, Chest pain, Dyspnea on exertion, Edema, Murmurs, Orthopnea, Palpitations, Paroxysmal nocturnal dyspnea, Rheumatic Fever, Syncope Endocrine: Reports: As per HPI. Denies: Fatigue, Heat or cold intolerance, Polydipsia, Polyuria Gastrointestinal: Reports: As per HPI. Denies: Abdominal pain, Constipation, Diarrhea, Hematemesis, Hematochezia, Melena, Nausea, Vomiting Genitourinary: Reports: As per HPI. Denies: Abnormal menses, Discharge, Dyspareunia, Dysuria, Frequency, Hematuria, Incontinence, Retention, Urgency Musculoskeletal: Reports: As per HPI. Denies: Arthralgia, Back pain, Gout, Joint swelling, Myalgia, Neck pain Skin: Reports: As per HPI. Denies: Bruising, Change in color, Change in hair/ nails, Lesions, Pruritus, Rash Neurological: Reports: As per HPI. Denies: Abnormal gait, Confusion, Headache, Numbness, Paresthesias, Seizure, Tingling, Tremors, Vertigo, Weakness Psychiatric: Reports: As per HPI. Denies: Anxiety, Auditory hallucinations, Depression, Homicidal thoughts, Suicidal thoughts, Visual hallucinations Hematological/Lymphatic: Reports: As per HPI. Denies: Anemia, Blood Clots, Easy bleeding, Easy bruising, Swollen glands Past Medical History - SOCIAL HISTORY Smoking Status: Current every day smoker Alcohol Use: None Drug Use: None - RESPIRATORY Hx Respiratory Disorders: No Hx Bronchitis: Yes - CARDIOVASCULAR Hx Cardio Disorders: Yes Hx Irregular Heartbeat: Yes (A-fib) Hx Palpitations: Yes Comment:: aortic stenosis, aneurysm - NEURO Hx Neuro Disorders: No - GI Hx GI Disorders: Yes Hx Reflux: Yes - Hx Genitourinary Disorders: No - ENDOCRINE Hx Endocrine Disorders: No - MUSCULOSKELETAL Hx Musculoskeletal Disorders: No - PSYCH Hx Psych Problems: No - HEMATOLOGY/ONCOLOGY Hx Hematology/Oncology Disorders: No Family Medical History Any Significant Family History?: No Hx Heart Disease: Brother/Sister Physical Exam - General General Appearance: Alert, Oriented x3, Cooperative, No acute distress - Head Head exam: Normal inspection - Eye Eye exam: Normal appearance, PERRL, EOMI Pupils: Normal accommodation - ENT ENT exam: Normal exam, Mucous membranes moist, Normal external ear exam, Normal orophraynx, TM's normal bilaterally Ear exam: Normal external inspection. negative: External canal tenderness Nasal Exam: Normal inspection. negative: Discharge, Sinus tenderness Mouth exam: Normal external inspection, Tongue normal Teeth exam: Normal inspection. negative: Dental caries Throat exam: Normal inspection. negative: Tonsillar erythema, Tonsillar exudate - Neck Neck exam: Normal inspection, Full ROM. negative: Tenderness - Respiratory Respiratory exam: Normal lung sounds bilaterally. negative: Respiratory distress - Cardiovascular Cardiovascular Exam: Regular rate, Normal rhythm, Normal heart sounds - GI/Abdominal GI/Abdominal exam: Soft, Normal bowel sounds. negative: Tenderness - Rectal Rectal exam: Heme (-) stool - exam: Deferred - Extremities Extremities exam: Normal inspection, Full ROM, Normal capillary refill. negative: Tenderness - Back Back exam: Reports: Normal inspection, Full ROM. Denies: Muscle spasm, Rash noted, Tenderness - Neurological Neurological exam: Alert, CN II-XII intact, Normal gait, Oriented X3 - Psychiatric Psychiatric exam: Normal affect, Normal mood - Skin Skin exam: Dry, Intact, Normal color, Warm Course Vital Signs 04/12/17 01:49 Temperature 98.5 F Pulse Rate 74 Respiratory 20 Rate Blood Pressure 129/70 Pulse Ox 97 Medical Decision Making - Lab Data Result diagrams: 04/12/17 02:10 Disposition Disposition: Discharge Clinical Impression: Anticoagulated on Coumadin Diarrhea Qualifiers: Diarrhea type: unspecified type Qualified Code(s): R19.7 - Diarrhea, unspecified Disposition: Home, Self-Care Condition: (1) Good Instructions: Warfarin (By mouth) Additional Instructions: follow up with family doctor. return sooner if worse Forms: Patient Portal Access
[2017-04-12 02:21] LABS: BASO % 0.4 % (0-6); EOS % 2.1 % (0-6); HEMATOCRIT 33.6 % (35.0-47.0); HEMOGLOBIN 10.1 gm/dl (11.6-16.0); LYMPH % 28.3 % (16-45); MEAN CELL VOLUME 76.2 fl (81-97); MEAN CORPUSCULAR HEMOGLOBIN 22.9 pg (27-33); MEAN CORPUSCULAR HGB CONC 30.1 g/dl (32-36); MONO % 14.2 % (0-9); PLATELET COUNT 400 K/uL (130-400); RED BLOOD COUNT 4.41 M/uL (3.80-5.40); RED CELL DISTRIBUTION WIDTH 18.1 % (11.5-14.5); WHITE BLOOD COUNT W/O DIFF 10.4 K/uL (4.2-12.2)
[2017-04-12 02:46] LABS: INR 2.07; PROTHROMBIN TIME (PATIENT) 23.4 SECONDS (9.5-12.1)
== END 2017-04-12 03:07 | disposition home or self-care (01) ==
LOC: ER 01:40
DX: T45.515A Adverse effect of anticoagulants, initial encounter (principal); R19.7 Diarrhea, unspecified; R11.0 Nausea; I48.91 Unspecified atrial fibrillation; Z79.01 Long term (current) use of anticoagulants
CPT/HCPCS: 85025; 85610; 99283

== ENCOUNTER 2017-05-19 12:59 | Emergency (ER) | payer BC ==
--- NOTE | 2017-05-19 13:29 | Emergency Department Record ---
History of Present Illness - General Chief Complaint: General Stated Complaint: OUT OF BLOOD THINNER Time Seen by Provider: 05/19/17 13:08 Source: Patient, Family Mode of Arrival: Ambulatory Limitations: No limitations - History of Present Illness Initial comments: 46 yo female presents with a request for medication refill. She is on Coumadin for prior cardiac surgery with aortic valve replacement. 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 Her last dose of Coumadin was Thursday. Her last INR was one month ago. She does have Lovenox at home. She requests a dose of medications. -: Days(s) Radiation: Non-Radiating Quality: Other Consistency: Constant Improves with: None Worsens with: Other (Missing doses of her mediation) Associated Symptoms: Denies other symptoms Treatments Prior to Arrival: None - [place] Scale Eye Response: (4) Open spontaneously Motor Response: (6) Obeys commands Verbal Response: (5) Oriented [place] Total: 15 - Related Data Home Medications Medication Instructions Recorded Confirmed Last Taken Aspirin Chewable 81 mg PO DAILY 04/13/14 05/19/17 1 Day Ago ~03/01/17 Diltiazem HCl [Diltiazem 12Hr ER] 60 mg PO DAILY 04/13/14 05/19/17 1 Day Ago ~03/01/17 Metoprolol Succinate 25 mg PO DAILY 04/13/14 05/19/17 1 Day Ago ~03/01/17 Warfarin Sodium 2.5 mg PO DAILY 04/13/14 05/19/17 1 Day Ago ~03/01/17 Alprazolam [Alprazolam] 0.5 mg PO ASDIR PRN 12/09/14 05/19/17 1 Day Ago ~03/01/17 Previous Rx's Medication Instructions Recorded Enoxaparin Sodium [Lovenox] 80 mg SQ BID #6 ml 04/08/17 Prednisone [Prednisone 20Mg] 20 mg PO BIDWM #10 tab 04/08/17 Tamsulosin HCl [Flomax] 0.4 mg PO DAILY #6 cap.er.24h 04/08/17 Allergies Allergy/AdvReac Type Severity Reaction Status Date / Time metoclopramide HCl AdvReac ALTERED Verified 03/02/17 12:53 [From Reglan] MENTAL STATUS phenazopyridine HCl AdvReac NAUSEA AND Verified 03/02/17 12:53 [From Pyridium] VOMITING actavis Allergy RASH Uncoded 03/02/17 12:53 Review of Systems Constitutional: Denies: Chills, Fever, Malaise, Weakness Eyes: Denies: Eye discharge ENT: Denies: Congestion, Throat pain Respiratory: Denies: Cough, Dyspnea, Hemoptysis, Stridor, Wheezes Cardiovascular: Denies: Chest pain, Palpitations, Syncope Endocrine: Denies: Fatigue Gastrointestinal: Denies: Diarrhea, Nausea, Vomiting Genitourinary: Denies: Dysuria, Urgency Musculoskeletal: Denies: Arthralgia, Back pain, Myalgia, Neck pain Skin: Denies: Bruising, Change in color, Rash Neurological: Denies: Headache, Numbness, Vertigo, Weakness Psychiatric: Denies: Anxiety Hematological/Lymphatic: Denies: Blood Clots, Easy bleeding, Easy bruising, Swollen glands Past Medical History - SOCIAL HISTORY Smoking Status: Current every day smoker Drug Use: None - RESPIRATORY Hx Respiratory Disorders: No Hx Bronchitis: Yes - CARDIOVASCULAR Hx Cardio Disorders: Yes Hx Irregular Heartbeat: Yes (A-fib) Hx Palpitations: Yes Comment:: aortic stenosis, aneurysm - NEURO Hx Neuro Disorders: No - GI Hx GI Disorders: Yes Hx Reflux: Yes - Hx Genitourinary Disorders: No - ENDOCRINE Hx Endocrine Disorders: No - MUSCULOSKELETAL Hx Musculoskeletal Disorders: No - PSYCH Hx Psych Problems: No - HEMATOLOGY/ONCOLOGY Hx Hematology/Oncology Disorders: No Family Medical History Hx Heart Disease: Brother/Sister Physical Exam - General General Appearance: Alert, Oriented x3, Cooperative, No acute distress Limitations: No limitations - Head Head exam: Normal inspection - Eye Eye exam: Normal appearance, PERRL. negative: Conjunctival injection, Periorbital swelling - ENT ENT exam: Normal exam Ear exam: Normal external inspection Nasal Exam: Normal inspection Mouth exam: Normal external inspection - Neck Neck exam: Normal inspection, Full ROM. negative: Tenderness - Respiratory Respiratory exam: Normal lung sounds bilaterally. negative: Respiratory distress - Cardiovascular Cardiovascular Exam: Regular rate, Normal rhythm, Normal heart sounds, Systolic murmur Peripheral Pulses: 2+: Radial (R), Radial (L) - GI/Abdominal GI/Abdominal exam: negative: Soft, Tenderness - Rectal Rectal exam: Deferred - exam: Deferred - Extremities Extremities exam: Normal inspection, Full ROM, Normal capillary refill. negative: Pedal edema, Tenderness - Neurological Neurological exam: Alert, Normal gait, Oriented X3, Reflexes normal - Psychiatric Psychiatric exam: Normal affect, Normal mood - Skin Skin exam: Dry, Intact, Normal color, Warm Course - Reevaluation(s) Reevaluation #1: I recommended checking an INR to be able to responsibly guide her on treatment today as she could be high or low. She has been both in the past. 05/19/17 13:31 Reevaluation #2: 05/19/17 14:00 Hgb is 12.5 05/19/17 14:01 Reevaluation #3: INR is 2.9 She will be given her daily dose of Coumadin and continue her medications as pre her PCP. 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
[2017-05-19 13:59] LABS: BASO % 0.3 % (0-6); EOS % 2.3 % (0-6); HEMATOCRIT 40.3 % (35.0-47.0); HEMOGLOBIN 12.5 gm/dl (11.6-16.0); MEAN CELL VOLUME 79.6 fl (81-97); MEAN CORPUSCULAR HEMOGLOBIN 24.7 pg (27-33); MEAN PLATELET VOLUME 10.4 fl (7.4-10.4); MONO % 12.4 % (0-9); PLATELET COUNT 352 K/uL (130-400); RED BLOOD COUNT 5.06 M/uL (3.80-5.40); RED CELL DISTRIBUTION WIDTH 22.4 % (11.5-14.5); WHITE BLOOD COUNT W/O DIFF 8.8 K/uL (4.2-12.2)
[2017-05-19 14:10] LABS: INR 2.9; PROTHROMBIN TIME (PATIENT) 32.8 SECONDS (9.5-12.1)
[2017-05-19] MEDS ORDERED: WARFARIN 5 MG TAB PO ONE (14:14)
== END 2017-05-19 14:27 | disposition home or self-care (01) ==
LOC: ER 12:59
DX: T45.516A Underdosing of anticoagulants, initial encounter (principal); Z91.138 Patient's unintentional underdosing of medication regimen for other reason; Z95.2 Presence of prosthetic heart valve
CPT/HCPCS: 85025; 85610; 99283

== ENCOUNTER 2017-11-23 21:25 | Emergency (ER) | payer BC ==
[2017-11-23] MEDS ORDERED: HYOSCYAMINE SULFATE ODT 0.125 MG TAB.SUBL SL ONE (21:44)
[2017-11-23] MEDS ORDERED: KETOROLAC 30 MG/ML VIAL IVP ONE (21:44)
--- NOTE | 2017-11-23 21:48 | Emergency Department Record ---
History of Present Illness - General Chief Complaint: Abdominal Pain Stated Complaint: SEVERE ABDOMIBNAL CRAMPS/GERD Time Seen by Provider: 11/23/17 21:39 Source: Patient Mode of Arrival: Ambulatory Limitations: No limitations - History of Present Illness Initial Comments: 47 yo female presents to ED for increasing "bloating and abdominal cramping" over the course of the last several weeks. Patient reports that her GERD has been acting up, resulting in worsening abdominal pain symptoms. Patient denies previous abdominal surgery, denies fevers, chills, or urinary symptoms. Patient denies change in stools. MD Complaint: Abdominal pain Onset/Timin -: Days(s) Location: LLQ, RLQ Radiation: Back Quality: Cramping, Fullness Consistency: Constant, Getting worse Improves With: Nothing Associated Symptoms: Diarrhea, Nausea - Related Data LMP (females 10-50): Last week Previous Rx's Medication Instructions Recorded Famotidine [Pepcid] 40 mg PO DAILY #30 tablet 11/23/17 Hyoscyamine Sulfate [Levsin-Sl] 0.25 mg SL Q8H PRN #20 tab.subl 11/23/17 Allergies Allergy/AdvReac Type Severity Reaction Status Date / Time metoclopramide HCl AdvReac ALTERED Verified 03/02/17 12:53 [From Reglan] MENTAL STATUS phenazopyridine HCl AdvReac NAUSEA AND Verified 03/02/17 12:53 [From Pyridium] VOMITING actavis Allergy RASH Uncoded 03/02/17 12:53 Travel Screening - Travel/Exposure Within Last 30 Days Have you traveled within the last 30 days?: No - Travel Symptoms Symptom Screening: None Review of Systems Constitutional: Denies: Chills, Fever, Malaise, Night sweats Eyes: Denies: Eye discharge, Eye pain ENT: Denies: Congestion, Ear pain, Epistaxis Respiratory: Denies: Cough, Dyspnea Cardiovascular: Denies: Chest pain, Dyspnea on exertion Endocrine: Denies: Fatigue, Heat or cold intolerance Gastrointestinal: Reports: Abdominal pain. Denies: Nausea, Vomiting Genitourinary: Denies: Incontinence, Retention Musculoskeletal: Denies: Arthralgia, Back pain Skin: Denies: Bruising, Change in color Neurological: Denies: Abnormal gait, Confusion, Seizure Psychiatric: Denies: Anxiety Hematological/Lymphatic: Denies: Anemia, Blood Clots Past Medical History - SOCIAL HISTORY Smoking Status: Current every day smoker - RESPIRATORY Hx Respiratory Disorders: Yes Hx Bronchitis: Yes - CARDIOVASCULAR Hx Cardio Disorders: Yes Hx Irregular Heartbeat: Yes (A-fib) Hx Palpitations: Yes Comment:: aortic stenosis, aneurysm - NEURO Hx Neuro Disorders: No - GI Hx GI Disorders: Yes Hx Reflux: Yes - Hx Genitourinary Disorders: No - ENDOCRINE Hx Endocrine Disorders: No - MUSCULOSKELETAL Hx Musculoskeletal Disorders: No - PSYCH Hx Psych Problems: No - HEMATOLOGY/ONCOLOGY Hx Hematology/Oncology Disorders: No Family Medical History Any Significant Family History?: Yes Hx Heart Disease: Brother/Sister Physical Exam - General General Appearance: Alert, Oriented x3, Cooperative, Mild distress Limitations: No limitations - Head Head exam: Atraumatic, Normocephalic, Normal inspection Head exam detail: negative: Abrasion, Contusion, Mena's sign, General tenderness, Hematoma, Laceration - Eye Eye exam: Normal appearance. negative: Conjunctival injection, Periorbital swelling, Periorbital tenderness, Scleral icterus - ENT Ear exam: negative: Auricular hematoma, Auricular trauma Nasal Exam: negative: Active bleeding, Discharge, Dried blood, Foreign body Mouth exam: negative: Drooling, Laceration, Muffled voice, Tongue elevation - Neck Neck exam: Normal inspection. negative: Meningismus, Tenderness - Respiratory Respiratory exam: Normal lung sounds bilaterally. negative: Rales, Respiratory distress, Rhonchi, Stridor - Cardiovascular Cardiovascular Exam: Regular rate, Normal rhythm, Normal heart sounds - GI/Abdominal GI/Abdominal exam: Soft, Tenderness (TTP LLQ, RLQ on examination.). negative: Rebound, Rigid - Rectal Rectal exam: Deferred - exam: Deferred - Extremities Extremities exam: Normal inspection. negative: Calf tenderness, Pedal edema, Tenderness - Back Back exam: Denies: CVA tenderness (R), CVA tenderness (L) - Neurological Neurological exam: Alert, Normal gait, Oriented X3 - Psychiatric Psychiatric exam: Normal affect, Normal mood - Skin Skin exam: Normal color. negative: Abrasion Type of lesion: negative: abrasion Course Vital Signs 11/23/17 21:33 Temperature 97.8 F Pulse Rate [ 72 Pulse Ox Probe] Respiratory 18 Rate Blood Pressure 148/69 [Left Arm] Pulse Ox 99 - Reevaluation(s) Reevaluation #1: 11/23/17 22:23 Labs reviewed, WBC 12.5, Hgb 10.7, and Potassium 4.7. Labs are otherwise grossly unremarkable for an acute process. UA demonstrates: 0-2 RBCs 0-2 WBCs 7-10 Epithelial cells Few bacteria CT imaging is pending currently. Reevaluation #2: 11/23/17 23:48 CT Abdomen and Pelvis: No acute findings. Patient was reassessed, reports that she is feeling much improved. Patient appears stable for discharge on Pepcid and Levsin as directed for her abdominal pain symptoms with instructions to follow-up with her PCP in 3-5 days as directed. Medical Decision Making - Lab Data Result diagrams: 11/23/17 21:58 11/23/17 21:58 Disposition Disposition: Discharge Clinical Impression: Abdominal pain Qualifiers: Abdominal location: generalized Qualified Code(s): R10.84 - Generalized abdominal pain Disposition: Home, Self-Care Condition: (2) Stable Instructions: Abdominal Pain (ED) Additional Instructions: Return to ED if your symptoms worsen or if you have any concerns. Levsin and Pepcid as directed. Follow-up with your family doctor in 3-5 days as directed. Prescriptions: Famotidine [Pepcid] 40 mg PO DAILY #30 tablet Hyoscyamine Sulfate [Levsin-Sl] 0.25 mg SL Q8H PRN #20 tab.subl PRN Reason: Abdominal Pain Forms: Patient Portal Access Time of Disposition: 23:53 Quality - Quality Measures Quality Measures: N/A - Blood Pressure Screening Does Patient Have Any of the Following: No Blood Pressure Classification: Pre-Hypertensive BP Reading Systolic Measurement: 120 Diastolic Measurement: 68 Screening for High Blood Pressure: < Pre-Hypertensive BP, F/U Documented > [ [id number]] Pre-Hypertensive Follow-up Interventions: Referral to alternative/primary care provider.
[2017-11-23 22:01] LABS: BASO % 0.2 % (0-6); EOS % 1.4 % (0-6); GRAN % 72.4 % (47-80); HEMATOCRIT 35.2 % (35.0-47.0); HEMOGLOBIN 10.7 gm/dl (11.6-16.0); LYMPH % 14.9 % (16-45); MEAN CELL VOLUME 79.1 fl (81-97); MEAN CORPUSCULAR HGB CONC 30.4 g/dl (32-36); MEAN PLATELET VOLUME 10.2 fl (7.4-10.4); MONO % 11.1 % (0-9); PLATELET COUNT 363 K/uL (130-400); RED BLOOD COUNT 4.45 M/uL (3.80-5.40); RED CELL DISTRIBUTION WIDTH 18.1 % (11.5-14.5); WHITE BLOOD COUNT W/O DIFF 12.5 K/uL (4.2-12.2)
[2017-11-23 22:14] LABS: URINE APPEARANCE CLEAR; URINE BILIRUBIN NEGATIVE (NEGATIVE); URINE BLOOD TRACE-I (NEGATIVE); URINE COLOR YELLOW; URINE GLUCOSE (UA) NEGATIVE (NEGATIVE); URINE KETONE NEGATIVE (NEGATIVE); URINE LEUKOCYTE ESTERASE MODERATE (NEGATIVE); URINE NITRITE NEGATIVE (NEGATIVE); URINE PROTEIN NEGATIVE (NEGATIVE); URINE UROBILINOGEN 0.2 E.U./dL (0.20 - 1.00)
[2017-11-23 22:15] LABS: BLOOD UREA NITROGEN 11 mg/dL (6-20); CREATININE 0.5 mg/dL (0.5-0.9); EST GLOMERULAR FILTRATION RATE > 60 mL/min
[2017-11-23 22:16] LABS: TOTAL PROTEIN 7.4 g/dL (6.6-8.7)
[2017-11-23 22:18] LABS: GLUCOSE,RANDOM 101 mg/dL (74-109)
[2017-11-23 22:20] LABS: ALB/GLOB RATIO 1.5 (1.1-1.8); ALBUMIN 4.4 g/dL (4.0-5.0); ALKALINE PHOSPHATASE 95 U/L (35-104); ALT/SGPT 28 U/L (<33); AST/SGOT 43 U/L (10.0-35.0)
[2017-11-23 22:21] LABS: LIPASE 32 U/L (13-60)
[2017-11-23 22:24] LABS: HCG,QUALITATIVE URINE NEGATIVE (NEGATIVE); URINE BACTERIA FEW; URINE RBC 0 - 2 (NONE SEEN); URINE WBC 0 - 2 (0-2/hpf)
--- NOTE | 2017-11-24 19:58 | CT SCAN REPORT ---
EXAM: CT SCAN ABDOMEN/PELVIS W CONTRAST HISTORY: ACUTE LOWER ABDOMEN PAIN/CRAMPING. RIGHT UPPER QUADRANT AND LOWER ABDOMINAL PAIN FOR ONE MONTH. TECHNIQUE: Contrast-enhanced helical CT examination of the abdomen and pelvis is performed including delayed images through the kidneys with 100 mL of Omnipaque-300 utilized. COMPARISON: CT abdomen and pelvis with contrast dated 04/08/2017. FINDINGS: There is minimal linear scarring vs. atelectasis in the medial aspect of the right middle lobe. The lung bases are otherwise clear. No pleural or pericardial effusion. The heart is not enlarged. The liver, spleen, pancreas, adrenal glands, and left kidney remain normal in appearance. A too small to characterize hypodense lesion is again demonstrated within the medial mid to upper right kidney measuring 6 mm. This is nonspecific but likely cyst. No other focal right renal lesion identified. The right renal collecting system is near the upper limits of normal in caliber. The gallbladder is unremarkable. No biliary ductal dilatation is seen. No intraabdominal nor retroperitoneal lymphadenopathy. The vasculature is normal in appearance. A tiny fat-filled umbilical hernia is redemonstrated. This appears uncomplicated. No new pelvic mass nor adenopathy is seen. The uterus is in the midline. The ovaries do not appear enlarged. No intrinsic urinary bladder abnormality is seen. No definite free intraperitoneal fluid. Evaluation of the bowel is somewhat limited by lack of oral contrast utilization. No gross bowel dilatation nor bowel wall thickening. The appendix is visualized and normal in appearance. No lytic or blastic bone lesion. IMPRESSION: 1. NO CONVINCING CT EVIDENCE OF AN ACUTE INTRAABDOMINAL NOR INTRAPELVIC PROCESS 2. TOO SMALL TO CHARACTERIZE HYPODENSE LESION AGAIN NOTED WITHIN THE RIGHT KIDNEY. THIS IS NONSPECIFIC BUT LIKELY A CYST. 3. TINY FAT-FILLED UMBILICAL HERNIA REDEMONSTRATED. JOB NUMBER: [id number] [facility]
== END 2017-11-24 00:21 | disposition home or self-care (01) ==
LOC: ER 21:25
DX: R10.84 Generalized abdominal pain (principal); R19.7 Diarrhea, unspecified; R11.0 Nausea
CPT/HCPCS: 74177; 80053; 81001; 81025; 83690; 85025; 96374; 99284; J1885

== ENCOUNTER 2018-03-20 17:06 | Emergency (ER) | payer BC ==
[2018-03-20] MEDS ORDERED: ONDANSETRON HCL IV 4 MG/2 ML VIAL IV ONE (17:43)
[2018-03-20] MEDS ORDERED: 0.9 % SODIUM CHLORIDE 1,000 ML BAG IV ONE (17:43)
--- NOTE | 2018-03-20 17:49 | Emergency Department Record ---
History of Present Illness - General Chief Complaint: Back Pain/Injury Stated Complaint: BACK PAIN AND NAUSEA Time Seen by Provider: 03/20/18 17:34 Source: Patient Mode of Arrival: Ambulatory Limitations: No limitations - History of Present Illness Initial Comments: The patient is here due to L Flank pain for 2 months that seems to have gotten worse in the last couple of days. The pain is intermittent and crampy in nature. There is mild nausea but no vomiting or diarrhea or fever. She has had similar issues in the past but no diagnosis was given. MD Complaint: Back pain Onset/Timin -: Month(s) Similar Symptoms Previously: No Place: Home Radiation: Flank Severity: Moderate Severity scale (1-10): 8 Quality: Stabbing Consistency: Intermittent Improves With: None Worsens With: None Context: Unknown Associated Symptoms: Nausea/vomiting - Related Data Previous Rx's Medication Instructions Recorded Famotidine [Pepcid] 40 mg PO DAILY #30 tablet 11/23/17 Hyoscyamine Sulfate [Levsin-Sl] 0.25 mg SL Q8H PRN #20 tab.subl 11/23/17 Tramadol HCl 50 mg PO Q8H #15 tab 03/20/18 Allergies Allergy/AdvReac Type Severity Reaction Status Date / Time metoclopramide HCl AdvReac ALTERED Verified 03/20/18 17:18 [From Reglan] MENTAL STATUS phenazopyridine HCl AdvReac NAUSEA AND Verified 03/20/18 17:18 [From Pyridium] VOMITING actavis Allergy RASH Uncoded 03/02/17 12:53 Travel Screening - Travel/Exposure Within Last 30 Days Have you traveled within the last 30 days?: No Review of Systems Constitutional: Denies: Chills, Fever Eyes: Denies: Eye discharge ENT: Denies: Congestion Respiratory: Denies: Cough, Dyspnea Past Medical History - SOCIAL HISTORY Smoking Status: Current every day smoker Alcohol Use: None Drug Use: None - RESPIRATORY Hx Respiratory Disorders: Yes Hx Bronchitis: Yes - CARDIOVASCULAR Hx Cardio Disorders: Yes Hx Irregular Heartbeat: Yes (A-fib) Hx Palpitations: Yes Comment:: aortic stenosis, aneurysm - NEURO Hx Neuro Disorders: No - GI Hx GI Disorders: Yes Hx Reflux: Yes - Hx Genitourinary Disorders: No - ENDOCRINE Hx Endocrine Disorders: No - MUSCULOSKELETAL Hx Musculoskeletal Disorders: No - PSYCH Hx Psych Problems: No - HEMATOLOGY/ONCOLOGY Hx Hematology/Oncology Disorders: No Family Medical History Any Significant Family History?: Yes Hx Heart Disease: Brother/Sister Physical Exam - General General Appearance: Alert, Oriented x3, Cooperative, No acute distress - Head Head exam: Atraumatic, Normocephalic, Normal inspection - Eye Eye exam: Normal appearance, PERRL - ENT Throat exam: Normal inspection. negative: Tonsillar erythema, Tonsillar exudate - Neck Neck exam: Normal inspection, Full ROM. negative: Tenderness - Respiratory Respiratory exam: Normal lung sounds bilaterally. negative: Respiratory distress - Cardiovascular Cardiovascular Exam: Regular rate, Normal rhythm, Systolic murmur. negative: Normal heart sounds - GI/Abdominal GI/Abdominal exam: Soft, Normal bowel sounds, Tenderness (There is mild LUQ tenderness to palpation but the abdomen is very soft.). negative: Distended, Rebound, Rigid - Extremities Extremities exam: Normal inspection, Full ROM, Normal capillary refill. negative: Tenderness - Back Back exam: Reports: Normal inspection, Paraspinal tenderness (There is reproducible tenderness to palpation to the L upper lumbar paraspinal area.). Denies: Vertebral tenderness Course Vital Signs 03/20/18 17:14 Temperature 98.5 F Pulse Rate 85 Respiratory 20 Rate Blood Pressure 154/100 Pulse Ox 99 - Reevaluation(s) Reevaluation #1: The patient is resting comfortably at this time. She is texting on her phone but is still having the L flank pain. I did explain to her that her workup including urine, labs and CT are all normal. The patient would like something for pain and will get a ride home so we will give her a dose of Dilaudid. She also has an elevated INR so we will hold her Coumadin today and tomorrow. She is to have the PT rechecked on Thursday prior to restarting her Coumadin. The patient has had Tramadol in the past and it has worked for her so we will give her that for pain. 03/20/18 19:07 03/20/18 19:13 Medical Decision Making - Data Complexity MDM Data: Labs Ordered and/or Reviewed, X-Ray Ordered and/or Reviewed - Lab Data Result diagrams: 03/20/18 17:30 03/20/18 17:30 - Radiology Data Radiology results: Report reviewed (CT: Neg for any acute intra-abdominal process.) Disposition Disposition: Discharge Clinical Impression: Chronic left flank pain Disposition: Home, Self-Care Condition: (2) Stable Instructions: Abdominal Pain (ED) Additional Instructions: Please take Tylenol along with Tramadol if needed. Please see your family doctor for recheck in 2-3 days for recheck. Return to the ER sooner for any worsening pain, fever, or vomiting. Please do not take your Coumadin today or tomorrow and please have the PT level rechecked prior to restarting your Coumadin. See your family doctor for it Thursday and if unable be seen there please return to the ER for recheck. Prescriptions: Tramadol HCl 50 mg PO Q8H #15 tab Forms: Patient Portal Access Time of Disposition: 19:13 Quality - Quality Measures Quality Measures: N/A - Blood Pressure Screening View Details: Yes Does Patient Have Any of the Following: No Blood Pressure Classification: Hypertensive Reading Systolic Measurement: 154 Diastolic Measurement: 100 Screening for High Blood Pressure: < First Hypertensive BP, F/U Documented > [ G8950] First Hypertensive Follow-up Interventions: Referral to alternative/primary care provider.
[2018-03-20 17:52] LABS: BASO % 0.2 % (0-6); EOS % 2.4 % (0-6); GRAN % 66.6 % (47-80); HEMATOCRIT 39.7 % (35.0-47.0); HEMOGLOBIN 12.4 gm/dl (11.6-16.0); LYMPH % 19.1 % (16-45); MEAN CELL VOLUME 88.6 fl (81-97); MEAN CORPUSCULAR HEMOGLOBIN 27.7 pg (27-33); MEAN CORPUSCULAR HGB CONC 31.2 g/dl (32-36); MEAN PLATELET VOLUME 10.4 fl (7.4-10.4); MONO % 11.7 % (0-9); PLATELET COUNT 353 K/uL (130-400); RED BLOOD COUNT 4.48 M/uL (3.80-5.40); RED CELL DISTRIBUTION WIDTH 19.3 % (11.5-14.5); WHITE BLOOD COUNT W/O DIFF 9.7 K/uL (4.2-12.2)
[2018-03-20 17:53] LABS: URINE APPEARANCE CLEAR; URINE BILIRUBIN NEGATIVE (NEGATIVE); URINE BLOOD TRACE-I (NEGATIVE); URINE COLOR YELLOW; URINE GLUCOSE (UA) NEGATIVE (NEGATIVE); URINE KETONE NEGATIVE (NEGATIVE); URINE LEUKOCYTE ESTERASE NEGATIVE (NEGATIVE); URINE NITRITE NEGATIVE (NEGATIVE); URINE PROTEIN NEGATIVE (NEGATIVE); URINE UROBILINOGEN 0.2 E.U./dL (0.20 - 1.00)
[2018-03-20 17:58] LABS: HCG,QUALITATIVE URINE NEGATIVE (NEGATIVE); URINE EPITHELIAL CELLS 0 - 2 (FEW); URINE RBC 0 - 2 (NONE SEEN); URINE WBC 0 - 2 (0-2/hpf)
[2018-03-20 18:03] LABS: BLOOD UREA NITROGEN 10 mg/dL (6-20); CREATININE 0.6 mg/dL (0.5-0.9); EST GLOMERULAR FILTRATION RATE > 60 mL/min
[2018-03-20 18:04] LABS: TOTAL PROTEIN 7.4 g/dL (6.6-8.7)
[2018-03-20 18:06] LABS: GLUCOSE,RANDOM 101 mg/dL (74-109)
[2018-03-20 18:08] LABS: ALT/SGPT 29 U/L (<33)
[2018-03-20 18:09] LABS: ALBUMIN 4.3 g/dL (4.0-5.0); ALKALINE PHOSPHATASE 116 U/L (35-104); AST/SGOT 46 U/L (10.0-35.0); BILIRUBIN,DIRECT < 0.2 mg/dL (0-0.3); LIPASE 30 U/L (13-60)
[2018-03-20 18:37] LABS: PROTHROMBIN TIME (PATIENT) 65.6 SECONDS (9.5-12.1)
[2018-03-20] MEDS ORDERED: HYDROMORPHONE HCL 2 MG/ML VIAL IVP ONE (19:03)
[2018-03-20] MEDS ORDERED: TRAMADOL HCL 50 MG TABLET PO ONE (19:20)
--- NOTE | 2018-03-22 08:29 | CT SCAN REPORT ---
EXAM: EMERGENCY CT OF THE ABDOMEN AND PELVIS WITHOUT CONTRAST HISTORY: LEFT FLANK PAIN OFF AND ON FOR A MONTH. TECHNIQUE: Axial CT scan of the abdomen and pelvis was performed without oral or IV contrast. Comparison: CT of the abdomen and pelvis dated 11/23/17. FINDINGS: No calcified gallstones are seen within the gallbladder. No intrarenal calculi is seen within the right kidney. There is at least one small calcification within the left kidney likely representing a small currently nonobstructing calculus within the left kidney, however, no hydronephrosis or hydroureter is seen on either side. No definite ureteral calculus seen on either side and no bladder calculus evident. Evaluation of the bowel and viscera is very limited without oral or IV contrast. Given this limitation, no definite hepatic, splenic, adrenal, pancreatic, or renal mass identified. Very small periumbilical anterior abdominal wall hernia containing adipose tissue, but no bowel. No appendicitis identified with the appendix appearing of normal caliber. No free intraperitoneal air or free intraperitoneal fluid evident. The patient is postop sternotomy seen on the upper most images along the lower sternum. Degenerative disk disease at the lumbosacral interspace. IMPRESSION: 1. SINGLE SMALL NONOBSTRUCTING CALCULUS WITHIN THE LEFT KIDNEY. NO DEFINITE URETERAL CALCULUS IDENTIFIED ON EITHER SIDE. 2. DEGENERATIVE DISK DISEASE AT THE LUMBOSACRAL INTERSPACE. 3. SMALL PERIUMBILICAL ANTERIOR ABDOMINAL WALL HERNIA CONTAINING ADIPOSE TISSUE WITH NO BOWEL. 4. THE APPENDIX APPEARS NEGATIVE. NO FREE AIR OR FREE FLUID EVIDENT. JOB NUMBER: [id number] [facility]
== END 2018-03-20 19:53 | disposition home or self-care (01) ==
LOC: ER 17:06
DX: R10.12 Left upper quadrant pain (principal); R79.1 Abnormal coagulation profile; R11.0 Nausea; R11.2 Nausea with vomiting, unspecified; F17.210 Nicotine dependence, cigarettes, uncomplicated; I48.91 Unspecified atrial fibrillation; Z79.01 Long term (current) use of anticoagulants
CPT/HCPCS: 99284 ×2; 96374; 96375; 83690; 85025; 85730; 85610; 80076; 80048; 81001; 81025; 74176; J2405; J1170; J7030

== ENCOUNTER 2018-07-27 22:46 | Emergency (ER) | payer BC ==
[2018-07-27 23:52] LABS: INR 3.4
--- NOTE | 2018-07-28 00:36 | Emergency Department Record ---
History of Present Illness - General Chief complaint: Nosebleed/epistaxis Stated complaint: NOSE BLEED Time Seen by Provider: 07/27/18 23:26 Source: Patient Mode of Arrival: Ambulatory Limitations: No limitations - History of Present Illness Initial comments: pt wants her INR checked as it tends to run high and she had a nosebleed earlier today. complaint: Epistaxis Onset/Timin -: Days(s) Location: Nose Severity: Moderate Severity scale (1-10): 5 Quality: Aching Consistency: Intermittent Improves with: None Worsens with: None Context-Epistaxis: Warfarin use Context- Dental: Other Context- Ear: Other Associated Symptoms: Other - Related Data Previous Rx's Medication Instructions Recorded Tramadol HCl 50 mg PO Q8H #15 tab 03/20/18 Allergies Allergy/AdvReac Type Severity Reaction Status Date / Time metoclopramide HCl AdvReac ALTERED Verified 03/20/18 17:18 [From Reglan] MENTAL STATUS phenazopyridine HCl AdvReac NAUSEA AND Verified 03/20/18 17:18 [From Pyridium] VOMITING actavis Allergy RASH Uncoded 03/02/17 12:53 Travel Screening - Travel/Exposure Within Last 30 Days Have you traveled within the last 30 days?: No - Travel Symptoms Symptom Screening: None Review of Systems Reviewed: No additional complaints except as noted below Constitutional: Reports: As per HPI. Denies: Chills, Fever, Malaise, Night sweats, Weakness, Weight change Eyes: Reports: As per HPI. Denies: Eye discharge, Eye pain, Photophobia, Vision change ENT: Reports: As per HPI, Epistaxis. Denies: Congestion, Dental pain, Ear pain , Hearing loss, Throat pain Respiratory: Reports: As per HPI. Denies: Cough, Dyspnea, Hemoptysis, Stridor, Wheezes Cardiovascular: Reports: As per HPI. Denies: Arrhythmia, Chest pain, Dyspnea on exertion, Edema, Murmurs, Orthopnea, Palpitations, Paroxysmal nocturnal dyspnea, Rheumatic Fever, Syncope Endocrine: Reports: As per HPI. Denies: Fatigue, Heat or cold intolerance, Polydipsia, Polyuria Gastrointestinal: Reports: As per HPI. Denies: Abdominal pain, Constipation, Diarrhea, Hematemesis, Hematochezia, Melena, Nausea, Vomiting Genitourinary: Reports: As per HPI. Denies: Abnormal menses, Discharge, Dyspareunia, Dysuria, Frequency, Hematuria, Incontinence, Retention, Urgency Musculoskeletal: Reports: As per HPI. Denies: Arthralgia, Back pain, Gout, Joint swelling, Myalgia, Neck pain Skin: Reports: As per HPI. Denies: Bruising, Change in color, Change in hair/ nails, Lesions, Pruritus, Rash Neurological: Reports: As per HPI. Denies: Abnormal gait, Confusion, Headache, Numbness, Paresthesias, Seizure, Tingling, Tremors, Vertigo, Weakness Psychiatric: Reports: As per HPI. Denies: Anxiety, Auditory hallucinations, Depression, Homicidal thoughts, Suicidal thoughts, Visual hallucinations Hematological/Lymphatic: Reports: As per HPI. Denies: Anemia, Blood Clots, Easy bleeding, Easy bruising, Swollen glands Past Medical History - SOCIAL HISTORY Smoking Status: Current every day smoker Alcohol Use: Occasional Drug Use: None - RESPIRATORY Hx Respiratory Disorders: Yes Hx Bronchitis: Yes - CARDIOVASCULAR Hx Cardio Disorders: Yes Hx Irregular Heartbeat: Yes (A-fib) Hx Palpitations: Yes Comment:: aortic stenosis, aneurysm - NEURO Hx Neuro Disorders: No - GI Hx GI Disorders: Yes Hx Reflux: Yes - Hx Genitourinary Disorders: No - ENDOCRINE Hx Endocrine Disorders: No - MUSCULOSKELETAL Hx Musculoskeletal Disorders: No - PSYCH Hx Psych Problems: No - HEMATOLOGY/ONCOLOGY Hx Hematology/Oncology Disorders: No Family Medical History Any Significant Family History?: No Hx Heart Disease: Brother/Sister Physical Exam - General General Appearance: Alert, Oriented x3, Cooperative, No acute distress - Head Head exam: Normal inspection - Eye Eye exam: Normal appearance, PERRL, EOMI Pupils: Normal accommodation - ENT ENT exam: Normal exam, Mucous membranes moist, Normal external ear exam, Normal orophraynx, TM's normal bilaterally Ear exam: Normal external inspection. negative: External canal tenderness Nasal Exam: Normal inspection, Dried blood. negative: Discharge, Sinus tenderness Mouth exam: Normal external inspection, Tongue normal Teeth exam: Normal inspection. negative: Dental caries Throat exam: Normal inspection. negative: Tonsillar erythema, Tonsillar exudate - Neck Neck exam: Normal inspection, Full ROM. negative: Tenderness - Respiratory Respiratory exam: Normal lung sounds bilaterally. negative: Respiratory distress - Cardiovascular Cardiovascular Exam: Regular rate, Normal rhythm, Normal heart sounds - GI/Abdominal GI/Abdominal exam: Soft, Normal bowel sounds. negative: Tenderness - Rectal Rectal exam: Deferred - exam: Deferred - Extremities Extremities exam: Normal inspection, Full ROM, Normal capillary refill. negative: Tenderness - Back Back exam: Reports: Normal inspection, Full ROM. Denies: Muscle spasm, Rash noted, Tenderness - Neurological Neurological exam: Alert, CN II-XII intact, Normal gait, Oriented X3 - Psychiatric Psychiatric exam: Normal affect, Normal mood - Skin Skin exam: Dry, Intact, Normal color, Warm Course Vital Signs 07/27/18 07/28/18 23:01 00:04 Temperature 98.1 F Pulse Rate [ 77 60 Pulse Ox Probe] Respiratory 20 20 Rate Blood Pressure 172/122 119/82 [Left Arm] Pulse Ox 98 98 - Reevaluation(s) Reevaluation #1: 07/28/18 00:31 pt does not want her nose examined or cauterized Medical Decision Making - Lab Data Lab Results 07/27/18 Range/Units 23:30 PT 33.0 H (9.5-12.1) SECONDS INR 3.4 Disposition Disposition: Discharge Clinical Impression: Epistaxis Disposition: Home, Self-Care Condition: (1) Good Instructions: Nosebleed (ED) Additional Instructions: follow up with family doctor. return sooner if worse. hold pressure on nose if it bleeds. Quality - Quality Measures Quality Measures: N/A - Blood Pressure Screening Does Patient Have Any of the Following: No Blood Pressure Classification: Pre-Hypertensive BP Reading Systolic Measurement: 119 Diastolic Measurement: 82 Screening for High Blood Pressure: < Pre-Hypertensive BP, F/U Documented > [ G8950] Pre-Hypertensive Follow-up Interventions: Follow-up with rescreen every year.
== END 2018-07-28 00:42 | disposition home or self-care (01) ==
LOC: ER 22:46
DX: R04.0 Epistaxis (principal); R79.1 Abnormal coagulation profile; I48.91 Unspecified atrial fibrillation; Z79.01 Long term (current) use of anticoagulants; F17.210 Nicotine dependence, cigarettes, uncomplicated; Z95.2 Presence of prosthetic heart valve
CPT/HCPCS: 85610; 99282

== ENCOUNTER 2018-07-28 21:55 | Emergency (ER) | payer BC ==
[2018-07-28 22:38] LABS: BASO % 0.3 % (0-6); EOS % 4.1 % (0-6); GRAN % 58.6 % (47-80); HEMOGLOBIN 13.3 gm/dl (11.6-16.0); LYMPH % 24.9 % (16-45); MEAN CELL VOLUME 92.7 fl (81-97); MEAN CORPUSCULAR HEMOGLOBIN 29.4 pg (27-33); MEAN CORPUSCULAR HGB CONC 31.7 g/dl (32-36); MEAN PLATELET VOLUME 10.6 fl (7.4-10.4); MONO % 12.1 % (0-9); PLATELET COUNT 316 K/uL (130-400); RED BLOOD COUNT 4.53 M/uL (3.80-5.40); RED CELL DISTRIBUTION WIDTH 15.6 % (11.5-14.5); WHITE BLOOD COUNT W/O DIFF 9.3 K/uL (4.2-12.2)
[2018-07-28 22:49] LABS: INR 2.8; PROTHROMBIN TIME (PATIENT) 27.2 SECONDS (9.5-12.1)
[2018-07-28 22:50] LABS: BLOOD UREA NITROGEN 8 mg/dL (6-20); CREATININE 0.6 mg/dL (0.5-0.9); EST GLOMERULAR FILTRATION RATE > 60 mL/min
[2018-07-28 22:53] LABS: GLUCOSE,RANDOM 111 mg/dL (74-109)
[2018-07-28 22:55] LABS: CREATINE PHOSPHOKINASE 135 U/L (26-192)
[2018-07-28 22:58] LABS: CKMB 2.3 ng/mL (<3.77)
[2018-07-28 23:05] LABS: THYROID STIMULATING HORMONE 2.82 uIU/mL (0.270-4.20)
--- NOTE | 2018-07-28 23:38 | Emergency Department Record ---
History of Present Illness - General Chief Complaint: Arrythmia/Palpitations Stated Complaint: IRREGULAR HEATBEAT Time Seen by Provider: 07/28/18 22:19 Source: Patient Mode of Arrival: Ambulatory Limitations: No limitations - History of Present Illness Initial Comments: pt started having palpitations and chest discomfort this evening. she has a hx of afib and ablation. she has not had afib for a year since the ablation. she feels lightheaded. she has a hx of aortic valve replacement Complaint: Palpitations Onset/Timin -: Hour(s) Context: Occurred during rest Arrythmia History: Atrial fibrillation, SVT Associated Symptoms: Chest pain Treatments Prior to Arrival: Beta-luis, Calcium channel luis - Related Data Home Medications Medication Instructions Recorded Confirmed Last Taken Flagyl Cream 1 applic TOP ASDIR PRN 07/28/18 Unknown Allergies Allergy/AdvReac Type Severity Reaction Status Date / Time metoclopramide HCl AdvReac ALTERED Verified 03/20/18 17:18 [From Reglan] MENTAL STATUS phenazopyridine HCl AdvReac NAUSEA AND Verified 03/20/18 17:18 [From Pyridium] VOMITING Travel Screening - Travel/Exposure Within Last 30 Days Have you traveled within the last 30 days?: No - Travel Symptoms Symptom Screening: None Review of Systems Reviewed: No additional complaints except as noted below Constitutional: Reports: As per HPI. Denies: Chills, Fever, Malaise, Night sweats, Weakness, Weight change Eyes: Reports: As per HPI. Denies: Eye discharge, Eye pain, Photophobia, Vision change ENT: Reports: As per HPI. Denies: Congestion, Dental pain, Ear pain, Epistaxis , Hearing loss, Throat pain Respiratory: Reports: As per HPI. Denies: Cough, Dyspnea, Hemoptysis, Stridor, Wheezes Cardiovascular: Reports: As per HPI. Denies: Arrhythmia, Chest pain, Dyspnea on exertion, Edema, Murmurs, Orthopnea, Palpitations, Paroxysmal nocturnal dyspnea, Rheumatic Fever, Syncope Endocrine: Reports: As per HPI. Denies: Fatigue, Heat or cold intolerance, Polydipsia, Polyuria Gastrointestinal: Reports: As per HPI. Denies: Abdominal pain, Constipation, Diarrhea, Hematemesis, Hematochezia, Melena, Nausea, Vomiting Genitourinary: Reports: As per HPI. Denies: Abnormal menses, Discharge, Dyspareunia, Dysuria, Frequency, Hematuria, Incontinence, Retention, Urgency Musculoskeletal: Reports: As per HPI. Denies: Arthralgia, Back pain, Gout, Joint swelling, Myalgia, Neck pain Skin: Reports: As per HPI. Denies: Bruising, Change in color, Change in hair/ nails, Lesions, Pruritus, Rash Neurological: Reports: As per HPI. Denies: Abnormal gait, Confusion, Headache, Numbness, Paresthesias, Seizure, Tingling, Tremors, Vertigo, Weakness Psychiatric: Reports: As per HPI. Denies: Anxiety, Auditory hallucinations, Depression, Homicidal thoughts, Suicidal thoughts, Visual hallucinations Hematological/Lymphatic: Reports: As per HPI. Denies: Anemia, Blood Clots, Easy bleeding, Easy bruising, Swollen glands Past Medical History - SOCIAL HISTORY Smoking Status: Current every day smoker - RESPIRATORY Hx Respiratory Disorders: Yes Hx Bronchitis: Yes - CARDIOVASCULAR Hx Cardio Disorders: Yes Hx Irregular Heartbeat: Yes (A-fib) Hx Palpitations: Yes Comment:: aortic stenosis, aneurysm - NEURO Hx Neuro Disorders: No - GI Hx GI Disorders: Yes Hx Reflux: Yes - Hx Genitourinary Disorders: No - ENDOCRINE Hx Endocrine Disorders: No - MUSCULOSKELETAL Hx Musculoskeletal Disorders: No - PSYCH Hx Psych Problems: No - HEMATOLOGY/ONCOLOGY Hx Hematology/Oncology Disorders: No Family Medical History Any Significant Family History?: Yes Hx Heart Disease: Brother/Sister Physical Exam - General General Appearance: Alert, Oriented x3, Cooperative, Mild distress - Head Head exam: Normal inspection - Eye Eye exam: Normal appearance, PERRL, EOMI Pupils: Normal accommodation - ENT ENT exam: Normal exam, Mucous membranes moist, Normal external ear exam, Normal orophraynx Ear exam: Normal external inspection. negative: External canal tenderness Nasal Exam: Normal inspection. negative: Discharge, Sinus tenderness Mouth exam: Normal external inspection, Tongue normal Teeth exam: Normal inspection. negative: Dental caries Throat exam: Normal inspection. negative: Tonsillar erythema, Tonsillar exudate - Neck Neck exam: Normal inspection, Full ROM. negative: Tenderness - Respiratory Respiratory exam: Normal lung sounds bilaterally. negative: Respiratory distress - Cardiovascular Cardiovascular Exam: Regular rate, Clicks, Irregular rhythm, Systolic murmur - GI/Abdominal GI/Abdominal exam: Soft, Normal bowel sounds. negative: Tenderness - Rectal Rectal exam: Deferred - exam: Deferred - Extremities Extremities exam: Normal inspection, Full ROM, Normal capillary refill. negative: Tenderness - Back Back exam: Reports: Normal inspection, Full ROM. 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 no cp Reevaluation #2: 07/29/18 01:29 pt remained in afib at a controlled rate w a low bp 106/. d/w joão molina pa and discharge was agreed on with f/u tomorrow in office. pts meds d/w mr morgan. mccoy attempted to reach dr bolden [facility] success. pt is appropriately anticoagulated. Medical Decision Making - Lab Data Result diagrams: 07/28/18 22:15 07/28/18 22:15 Lab Results 07/28/18 07/28/18 07/28/18 Range/Units 22:15 22:15 22:15 WBC 9.3 (4.2-12.2) K/uL RBC 4.53 (3.80-5.40) M/uL Hgb 13.3 (11.6-16.0) gm/dl Hct 42.0 (35.0-47.0) % MCV 92.7 (81-97) fl MCH 29.4 (27-33) pg MCHC 31.7 L (32-36) g/dl RDW 15.6 H (11.5-14.5) % Plt Count 316 (130-400) K/uL MPV 10.6 H (7.4-10.4) fl Gran % 58.6 (47-80) % Lymphocytes % 24.9 (16-45) % Monocytes % 12.1 H (0-9) % Eosinophils % 4.1 (0-6) % Basophils % 0.3 (0-6) % PT 27.2 H (9.5-12.1) SECONDS INR 2.8 Sodium 140 (136-145) mmol/L Potassium 3.8 (3.4-4.5) mmol/L Chloride 100 (98-107) mmol/L Carbon Dioxide 26.0 (22-29) mmol/L Anion Gap 14.0 (7-16) BUN 8 (6-20) mg/dL Creatinine 0.6 (0.5-0.9) mg/dL Estimated GFR > 60 mL/min Random Glucose 111 H (74-109) mg/dL Calcium 9.1 (8.6-10.0) mg/dL Creatine Kinase 135 (26-192) U/L CK-MB (CK-2) 2.3 (<3.77) ng/mL Troponin T < 0.010 (0-0.010) ng/mL TSH 2.82 (0.270-4.20) uIU/mL Disposition Disposition: Discharge Clinical Impression: Afib Qualifiers: Atrial fibrillation type: paroxysmal Qualified Code(s): I48.0 - Paroxysmal atrial fibrillation Disposition: Home, Self-Care Condition: (1) Good Instructions: A-fib (Atrial Fibrillation) (ED) Additional Instructions: follow up with dr garrido today. return sooner if worse. Forms: Patient Portal Access, Return to Work/School Quality - Quality Measures Quality Measures: N/A - Blood Pressure Screening Does Patient Have Any of the Following: No Blood Pressure Classification: Hypertensive Reading Systolic Measurement: 149 Diastolic Measurement: 77 Screening for High Blood Pressure: < Pre-Hypertensive BP, F/U Documented > [ G8950] Pre-Hypertensive Follow-up Interventions: Follow-up with rescreen every year.
--- NOTE | 2018-08-02 08:03 | RADIOLOGY REPORT ---
EXAM: CHEST, TWO VIEWS HISTORY: HEART PALPITATION. TECHNIQUE: Frontal and lateral views of the chest were performed. Comparison: 04/05/17. FINDINGS: Postop sternotomy wires. The heart size is normal. No infiltrate or pleural effusion. The osseous structures are normal. IMPRESSION: NO ACUTE DISEASE PROCESS. JOB NUMBER: [id number] [facility]
== END 2018-07-29 01:51 | disposition home or self-care (01) ==
LOC: ER 21:55
DX: I48.0 Paroxysmal atrial fibrillation (principal); Z79.01 Long term (current) use of anticoagulants; Z95.1 Presence of aortocoronary bypass graft
CPT/HCPCS: 71046; 80048; 82550; 82553; 84443; 84484; 85025; 85610; 93005; 93010; 93041; 99284

== ENCOUNTER 2019-02-26 15:01 | Emergency (ER) | payer BC ==
[2019-02-26] MEDS ORDERED: IPRATROPIUM/ALBUTEROL (0.5MG/3MG) NEB INH ONE (15:12)
[2019-02-26] MEDS ORDERED: ALBUTEROL SULFATE (0.083%) 2.5 MG/3 ML NEB INH ONE (15:30)
[2019-02-26] MEDS ORDERED: METHYLPREDNISOLONE PF 125MG/VIAL IVP ONE (15:30)
--- NOTE | 2019-02-26 15:38 | Emergency Department Record ---
History of Present Illness - General Chief Complaint: Difficulty Breathing Stated Complaint: SERGIO Time Seen by Provider: 02/26/19 15:14 Source: Patient Mode of Arrival: Ambulatory Limitations: No limitations - History of Present Illness Initial Comments: The patient is here due to a cough, congestion wheezing and sputum production for the last 2 weeks. She did go to the 3 days ago and was placed on Augmentin but now her wheezing seems to be worse. The patient does have a hx of Reactive Airway dz when she gets a URI. There has been no fever, chills, CP, back pain or hemoptysis but she does have upper abdominal fullness. The patient has not had a BM in a week and constipation has been a chronic issue with her. MD Complaint: Cough, Shortness of breath Onset/Timin -: Week(s) Improves With: Nothing Worsens With: Nothing Associated Symptoms: Sputum production - Related Data Previous Rx's Medication Instructions Recorded Albuterol Sulfate [Proair Hfa] 2 puff IH QID PRN #1 inhaler 02/26/19 Prednisone [Prednisone 20Mg] 40 mg PO DAILY #8 tab 02/26/19 Allergies Allergy/AdvReac Type Severity Reaction Status Date / Time metoclopramide HCl AdvReac ALTERED Verified 02/26/19 15:14 [From Reglan] MENTAL STATUS phenazopyridine HCl AdvReac NAUSEA AND Verified 02/26/19 15:14 [From Pyridium] VOMITING Travel Screening - Travel/Exposure Within Last 30 Days Have you traveled within the last 30 days?: No - Travel/Exposure Within Last Year Have you traveled outside the [place] in the last year?: No - Additonal Travel Details Have you been exposed to anyone with a communicable illness?: No - Travel Symptoms Symptom Screening: None Review of Systems Constitutional: Reports: Malaise. Denies: Chills, Fever Eyes: Denies: Eye discharge ENT: Reports: Congestion Respiratory: Reports: Cough, Dyspnea, Wheezes. Denies: Hemoptysis Cardiovascular: Denies: Arrhythmia Endocrine: Denies: Fatigue Gastrointestinal: Denies: Nausea Genitourinary: Denies: Dysuria Musculoskeletal: Denies: Arthralgia Neurological: Denies: Abnormal gait Past Medical History - SOCIAL HISTORY Smoking Status: Current every day smoker Alcohol Use: Occasional Drug Use: None - RESPIRATORY Hx Respiratory Disorders: Yes Hx Bronchitis: Yes Hx Pneumonia: Yes - CARDIOVASCULAR Hx Cardio Disorders: Yes Hx Irregular Heartbeat: Yes (A-fib) Hx Palpitations: Yes Comment:: aortic stenosis, aneurysm - NEURO Hx Neuro Disorders: No - GI Hx GI Disorders: Yes Hx Reflux: Yes - Hx Genitourinary Disorders: No - ENDOCRINE Hx Endocrine Disorders: No - MUSCULOSKELETAL Hx Musculoskeletal Disorders: No - PSYCH Hx Psych Problems: No - HEMATOLOGY/ONCOLOGY Hx Hematology/Oncology Disorders: No Family Medical History Any Significant Family History?: No Hx Heart Disease: Brother/Sister Physical Exam - General General Appearance: Alert, Oriented x3, Cooperative, No acute distress - Head Head exam: Atraumatic, Normocephalic, Normal inspection - Eye Eye exam: Normal appearance, PERRL - ENT Throat exam: Normal inspection. negative: Tonsillar erythema, Tonsillar exudate - Neck Neck exam: Normal inspection, Full ROM. negative: Tenderness - Respiratory Respiratory exam: Wheezes (in the lower lobes mainly.). negative: Normal lung sounds bilaterally, Accessory muscle use, Decreased breath sounds, Respiratory distress - Cardiovascular Cardiovascular Exam: Regular rate, Normal rhythm. negative: Normal heart sounds (There is a crisp valve click from the patient's mechanical valve.) - GI/Abdominal GI/Abdominal exam: Soft, Normal bowel sounds. negative: Tenderness - Extremities Extremities exam: Normal inspection, Full ROM, Normal capillary refill. negative: Tenderness - Neurological Neurological exam: Alert, Normal gait. negative: Abnormal gait, Motor sensory deficit Course Vital Signs 02/26/19 02/26/19 02/26/19 15:02 15:19 15:21 Temperature 98.1 F Pulse Rate 81 80 Respiratory 24 18 Rate Blood Pressure 151/68 Pulse Ox 100 100 - Reevaluation(s) Reevaluation #1: The patient is doing a lot better at this time. Her wheezing is gone after the 2 neb tx's and the IV steroids. The patient's INR is a little low so we will give her a double dose of Coumadin now. I do believe it is low do to her holding one dose the last few days because she is taking the Augmentin. The patient's CXR and WBC and Procalcitonin do not demonstrate a bacterial cause for the URI. We will restart the patient's home inhaller and have her continue the Prednisone. She is to see her PCP later this week for recheck if not better. 02/26/19 16:17 Medical Decision Making - Data Complexity MDM Data: Labs Ordered and/or Reviewed, X-Ray Ordered and/or Reviewed - Lab Data Result diagrams: 02/26/19 15:20 02/26/19 15:20 - Radiology Data Radiology results: Report reviewed (CXR: Neg.) Disposition Disposition: Discharge Clinical Impression: URI with cough and congestion Disposition: Home, Self-Care Condition: (2) Stable Instructions: Reactive Airways Disease (ED) Additional Instructions: Please continue your regular medicines and please use the inhaller as directed along with the Prednisone. Please see your family doctor next week if not better and return to the ER for any worsening symptoms. Prescriptions: Albuterol Sulfate [Proair Hfa] 2 puff IH QID PRN #1 inhaler PRN Reason: Cough And Difficulty Breathing Prednisone [Prednisone 20Mg] 40 mg PO DAILY #8 tab Forms: Patient Portal Access Time of Disposition: 16:37 Quality - Quality Measures Quality Measures: N/A - Blood Pressure Screening View Details: Yes Does Patient Have Any of the Following: No Blood Pressure Classification: Hypertensive Reading Systolic Measurement: 151 Diastolic Measurement: 68 Screening for High Blood Pressure: < First Hypertensive BP, F/U Documented > [ G8950] First Hypertensive Follow-up Interventions: Referral to alternative/primary care provider.
[2019-02-26 15:44] LABS: BASO % 0.2 % (0-6); EOS % 4.8 % (0-6); GRAN % 53.7 % (47-80); HEMATOCRIT 36.4 % (35.0-47.0); HEMOGLOBIN 11.1 gm/dl (11.6-16.0); LYMPH % 31.6 % (16-45); MEAN CELL VOLUME 85.4 fl (81-97); MEAN CORPUSCULAR HGB CONC 30.5 g/dl (32-36); MEAN PLATELET VOLUME 10.5 fl (7.4-10.4); MONO % 9.7 % (0-9); PLATELET COUNT 364 K/uL (130-400); RED BLOOD COUNT 4.26 M/uL (3.80-5.40); RED CELL DISTRIBUTION WIDTH 16.3 % (11.5-14.5); WHITE BLOOD COUNT W/O DIFF 8.5 K/uL (4.2-12.2)
[2019-02-26 15:55] LABS: BLOOD UREA NITROGEN 8 mg/dL (6-20); CREATININE 0.6 mg/dL (0.5-0.9); EST GLOMERULAR FILTRATION RATE > 60 mL/min; INR 1.4; PROTHROMBIN TIME (PATIENT) 13.6 SECONDS (9.5-12.1)
[2019-02-26 15:56] LABS: TOTAL PROTEIN 7.3 g/dL (6.6-8.7)
[2019-02-26 15:58] LABS: GLUCOSE,RANDOM 100 mg/dL (74-109)
[2019-02-26 16:00] LABS: ALB/GLOB RATIO 1.4 (1.1-1.8); ALBUMIN 4.3 g/dL (4.0-5.0); ALT/SGPT 20 U/L (<33); AST/SGOT 30 U/L (10.0-35.0)
[2019-02-26 16:01] LABS: ALKALINE PHOSPHATASE 83 U/L (35-104)
[2019-02-26 16:02] LABS: INFLUENZA A NEGATIVE (NEGATIVE); INFLUENZA B NEGATIVE (NEGATIVE)
[2019-02-26] MEDS ORDERED: WARFARIN 5 MG TAB PO ONE ×2 (16:11→16:12)
--- NOTE | 2019-02-28 12:26 | RADIOLOGY REPORT ---
EXAM: CHEST , TWO VIEWS HISTORY: PATIENT HAS A COUGH. TECHNIQUE: Two views of the chest are provided along with the comparison study dated 01/11/19. FINDINGS: The cardiomediastinal silhouette is within normal limits for size and contour. The hemant appear unremarkable. Post sternotomy changes are identified. There is no radiographic evidence of a focal infiltrate, pleural effusion or pneumothorax. IMPRESSION: STABLE RADIOGRAPHIC APPEARANCE OF THE CHEST WITH RESPECT TO THE PRIOR EXAMINATION. JOB NUMBER: [id number] MTDD
== END 2019-02-26 16:55 | disposition home or self-care (01) ==
LOC: ER 15:01
DX: J06.9 Acute upper respiratory infection, unspecified (principal); R05 Cough; R06.00 Dyspnea, unspecified; R06.2 Wheezing; I48.91 Unspecified atrial fibrillation; F17.210 Nicotine dependence, cigarettes, uncomplicated; Z79.01 Long term (current) use of anticoagulants
CPT/HCPCS: 71046; 80053; 84145; 84703; 85025; 85610; 87400; 94640; 96374; 99284; J2930; J7613

== ENCOUNTER 2019-07-01 14:05 | Emergency (ER) | payer BC ==
--- NOTE | 2019-07-01 14:36 | Emergency Department Record ---
History of Present Illness - General Chief complaint: Vomiting Stated complaint: BLOATING, VOMITING,AFEB Time Seen by Provider: 07/01/19 14:29 Source: Patient Mode of Arrival: Ambulatory Limitations: No limitations - History of Present Illness Initial comments: 48 yo female presents with two concerns. She states she has been having irregular heart rate for a week. She has a history of valve replacement and atrial fibrillation. She has had ablations twice in the past. She feels some shortness of breath. The click from her valve with the atrial fibrillation is noticeable and keeps her up at night. She is on Coumadin. Additionally she has had three months of bloating of the abdomen. She started with constipation. She took some laxatives that initial worked but since then she has 1-2 bowel movements a week while on Miralax and feels gassy. No vomiting. No diarrhea. No blood in the stools. She saw her PCP. Dr Cooper is her PCP. Dr Francis is her Pickling Drum Operator. MD complaint: Abdominal pain, Nausea, Other (Palpitations) Onset/Timin -: Week(s) Description of Vomiting: Food contents Associated Abdominal Pain: Yes Radiation: None Quality: Aching Consistency: Constant Improves with: None Worsens with: None Associated Symptoms: Nausea/vomiting - Related Data Home Medications Medication Instructions Recorded Confirmed Last Taken Omeprazole 40 mg PO DAILY 07/01/19 07/01/19 Unknown Allergies Allergy/AdvReac Type Severity Reaction Status Date / Time metoclopramide HCl AdvReac ALTERED Verified 07/01/19 14:16 [From Reglan] MENTAL STATUS phenazopyridine HCl AdvReac NAUSEA AND Verified 07/01/19 14:16 [From Pyridium] VOMITING Travel Screening - Travel/Exposure Within Last 30 Days Have you traveled within the last 30 days?: No - Travel Symptoms Symptom Screening: None Review of Systems Constitutional: Denies: Chills, Fever, Malaise, Weakness Eyes: Denies: Eye discharge ENT: Denies: Congestion, Throat pain Respiratory: Reports: Dyspnea. Denies: Cough, Hemoptysis, Wheezes Cardiovascular: Reports: Palpitations. Denies: Chest pain, Dyspnea on exertion, Edema, Syncope Endocrine: Reports: Fatigue Gastrointestinal: Denies: Abdominal pain, Diarrhea, Nausea, Vomiting Genitourinary: Denies: Dysuria, Urgency Musculoskeletal: Denies: Arthralgia, Back pain, Myalgia, Neck pain Skin: Denies: Bruising, Change in color, Rash Neurological: Denies: Headache Psychiatric: Denies: Anxiety Hematological/Lymphatic: Denies: Easy bleeding, Easy bruising Past Medical History - SOCIAL HISTORY Smoking Status: Current every day smoker - RESPIRATORY Hx Respiratory Disorders: Yes Hx Bronchitis: Yes Hx Pneumonia: Yes - CARDIOVASCULAR Hx Cardio Disorders: Yes Hx Irregular Heartbeat: Yes (A-fib) Hx Palpitations: Yes Comment:: aortic stenosis, aneurysm - NEURO Hx Neuro Disorders: No - GI Hx GI Disorders: Yes Hx Reflux: Yes - Hx Genitourinary Disorders: No - ENDOCRINE Hx Endocrine Disorders: No - MUSCULOSKELETAL Hx Musculoskeletal Disorders: No - PSYCH Hx Psych Problems: No - HEMATOLOGY/ONCOLOGY Hx Hematology/Oncology Disorders: No Family Medical History Any Significant Family History?: Yes Hx Heart Disease: Brother/Sister Physical Exam - General General Appearance: Alert, Oriented x3, Cooperative, No acute distress Limitations: No limitations - Head Head exam: Atraumatic, Normal inspection - Eye Eye exam: Normal appearance, PERRL. negative: Conjunctival injection, Scleral icterus - ENT ENT exam: Normal exam, Mucous membranes moist Ear exam: Normal external inspection Nasal Exam: Normal inspection Mouth exam: Normal external inspection - Neck Neck exam: Normal inspection. negative: Lymphadenopathy - Respiratory Respiratory exam: Normal lung sounds bilaterally. negative: Accessory muscle use, Chest wall tenderness, Decreased breath sounds, Prolonged expiratory, Rales, Rhonchi, Stridor, Wheezes - Cardiovascular Cardiovascular Exam: Regular rate, Clicks, Irregular rhythm. negative: Normal rhythm, Normal heart sounds Peripheral Pulses: 2+: Radial (R), Radial (L) - GI/Abdominal GI/Abdominal exam: Soft, Normal bowel sounds, Tenderness (Softly distended without rebound or guarding, active bowel sounds ). negative: Diminished bowel sounds - Rectal Rectal exam: Deferred - exam: Deferred - Extremities Extremities exam: Normal inspection. negative: Pedal edema, Tenderness - Back Back exam: Denies: CVA tenderness (R), CVA tenderness (L) - Neurological Neurological exam: Alert, Oriented X3. negative: Altered - Psychiatric Psychiatric exam: negative: Anxious - Skin Skin exam: Dry, Intact, Normal color, Warm Course Vital Signs 07/01/19 14:24 Temperature 97.9 F Pulse Rate [ 61 Pulse Ox Probe] Respiratory 18 Rate Blood Pressure 135/72 [Left Arm] Pulse Ox 98 - Reevaluation(s) Reevaluation #1: 07/01/19 14:47 EKG #1: 14:35 Rate: 90 Rhythm: atrial fibrillation [place]: normal Intervals: normal ST segments: normal Prior: 07/28/18 07/01/19 15:28 INR is 3.6 No acute changes on the CMP Troponin is normal 07/01/19 16:40 Dr Francis's office was contacted to discuss the atrial fibrillation. Waiting call back for Dr Francis at this time. 07/01/19 17:[address] scan was reviewed. Diverticulosis without diverticulitis, left intrarenal stone, small fat containing umbilical hernia, dominant left follicle. 07/01/19 17:47 I have spoken twice with Dr Francis's MATERIAL DISPATCHER Tesha. He is in a procedure currently and will call back when available. 07/01/19 17:[address] Francis. He recommends DC home since she is therapeutic and rate well controlled. She is to call the office Thursday morning for possible cardioversion as an outpatient first of the week. She is to go to [facility] or return if she feels her rate is not controlled, short of breath or any other concerns. 07/01/19 18:50 Medical Decision Making - Lab Data Result diagrams: 07/01/19 14:35 07/01/19 14:35 Disposition Disposition: Discharge Clinical Impression: Abdominal pain Qualifiers: Abdominal location: unspecified location Qualified Code(s): R10.9 - Unspecified abdominal pain Atrial fibrillation Qualifiers: Atrial fibrillation type: unspecified Qualified Code(s): I48.91 - Unspecified atrial fibrillation Disposition: Home, Self-Care Condition: (1) Good Instructions: A-fib (Atrial Fibrillation) (ED), Abdominal Pain (ED) Additional Instructions: Call your Dr Francis for the next available follow up appointment Thursday Review this ER visit and the tests performed with Dr Francis Be seen if you have any change in your symptoms, fast rate, short or breath or any other concerns You have been referred to the GI clinic at [facility] for your abdominal symptoms. Referrals: [facility] Specialty Clinics [Provider Group] DON REN [MEDICAL DOCTOR] - Forms: Patient Portal Access Time of Disposition: 18:02 Quality - Quality Measures Quality Measures: N/A - Blood Pressure Screening Does Patient Have Any of the Following: No Blood Pressure Classification: Normal BP Reading Systolic Measurement: 114 Diastolic Measurement: 64 Screening for High Blood Pressure: < Normal BP, F/U Not Required > [G8783]
[2019-07-01 14:47] LABS: ABSOLUTE NEUTROPHIL COUNT 6.46; BASO % 0.3 % (0-6); EOS % 2.3 % (0-6); HEMATOCRIT 37.1 % (35.0-47.0); HEMOGLOBIN 11.2 gm/dl (11.6-16.0); LYMPH % 21.2 % (16-45); MEAN CELL VOLUME 79.4 fl (81-97); MEAN CORPUSCULAR HGB CONC 30.2 g/dl (32-36); MONO % 11.2 % (0-9); PLATELET COUNT 430 K/uL (130-400); RED BLOOD COUNT 4.67 M/uL (3.80-5.40); RED CELL DISTRIBUTION WIDTH 17.1 % (11.5-14.5); WHITE BLOOD COUNT W/O DIFF 9.9 K/uL (4.2-12.2)
[2019-07-01 14:50] LABS: MEAN CORPUSCULAR HEMOGLOBIN 23.9 pg (27-33)
[2019-07-01 14:59] LABS: BLOOD UREA NITROGEN 6 mg/dL (6-20); INR 3.6; PARTIAL THROMBOPLASTIN TIME 40.7 SECONDS (24.5-39.1); PROTHROMBIN TIME (PATIENT) 34.8 SECONDS (9.5-12.1)
[2019-07-01 15:00] LABS: CREATININE 0.6 mg/dL (0.5-0.9); EST GLOMERULAR FILTRATION RATE > 60 mL/min; TOTAL PROTEIN 7.9 g/dL (6.6-8.7)
[2019-07-01 15:02] LABS: GLUCOSE,RANDOM 94 mg/dL (74-109)
[2019-07-01 15:05] LABS: ALB/GLOB RATIO 1.5 (1.1-1.8); ALBUMIN 4.8 g/dL (4.0-5.0); ALKALINE PHOSPHATASE 113 U/L (35-104); ALT/SGPT 19 U/L (<33); AST/SGOT 32 U/L (10.0-35.0)
--- NOTE | 2019-07-03 17:02 | CT SCAN REPORT ---
EXAM: CT SCAN ABDOMEN/PELVIS W CONTRAST HISTORY: PAIN AND BLOATING FOR SEVERAL WEEKS. TECHNIQUE: Axial CT scan of the abdomen and pelvis obtained following both oral and IV contrast administration. Please see the medical record for contrast specifics. COMPARISON: CT abdomen and pelvis, 03/20/18. FINDINGS: No calcified gallstones seen within the gallbladder. No definite hepatic, splenic, adrenal, pancreatic, or renal mass identified. There is no appreciable caliectasis on either side although the right renal pelvis is slightly more pronounced than on 03/20/18. Segments of the right ureter appear slightly dilated as well where as other segments are nondilated and difficult to follow. There is no intrarenal calculus see on the right. There does to be a single tiny nonobstructing calculus within the left kidney also noted on 03/20/18. No bladder calculus evident. 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 There also appears to be an approximately 1.8 cm low-attenuation mass, right ovary, nonspecific although presumably just a dominant follicle. Tiny amount of free fluid in the pelvis may simply be physiologic in nature. No definite free intraperitoneal air evident. Very small umbilical hernia containing adipose tissue but no bowel. Minor diverticulosis, sigmoid colon, but no diverticulitis evident. Oral contrast given has passed throughout the small bowel into the proximal colon with no small bowel obstruction evident. Appendix visualized and appears negative with no appendicitis evident. Degenerative disc disease at the lumbosacral interspace with prominent posterior spurring at this interspace. There is some facet joint arthropathy in the lower lumbar spine as well. There is some infringement on the left lateral recess of S1 related to the hypertrophic spurring at the lumbosacral interspace. IMPRESSION: 1. SMALL UMBILICAL HERNIA CONTAINING ADIPOSE TISSUE BUT NO BOWEL. 2. 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 PROBABLE DOMINANT FOLLICLE, 1.8 CM IN SIZE, RIGHT OVARY. 3. MINOR SIGMOID DIVERTICULOSIS BUT NO DIVERTICULITIS EVIDENT. 4. VERY SMALL AMOUNT OF FREE FLUID MAY SIMPLY BE PHYSIOLOGIC. NO FREE AIR EVIDENT. APPENDIX NEGATIVE. 5. DEGENERATIVE CHANGE AT THE LUMBOSACRAL INTERSPACE IN PARTICULAR. 6. SINGLE, TINY, NONOBSTRUCTING CALCULUS, LEFT KIDNEY. NO URETERAL CALCULUS ON EITHER SIDE. JOB NUMBER: [id number] [facility]
== END 2019-07-01 18:18 | disposition home or self-care (01) ==
LOC: ER 14:05
DX: I48.91 Unspecified atrial fibrillation (principal); R10.9 Unspecified abdominal pain; R11.2 Nausea with vomiting, unspecified; R06.02 Shortness of breath; F17.210 Nicotine dependence, cigarettes, uncomplicated; Z79.01 Long term (current) use of anticoagulants; Z95.2 Presence of prosthetic heart valve
CPT/HCPCS: 99284 ×2; 85025; 85730; 85610; 80053; 84484; 74177; 93005; 93010; Q9967

== ENCOUNTER 2019-07-13 20:51 | Emergency (ER) | payer BC ==
[2019-07-13] MEDS ORDERED: 0.9 % SODIUM CHLORIDE 1,000 ML BAG IV ONE (21:34)
[2019-07-13 21:51] LABS: ABSOLUTE NEUTROPHIL COUNT 4.02; BASO % 0.3 % (0-6); EOS % 3.3 % (0-6); GRAN % 55.5 % (47-80); HEMATOCRIT 31.1 % (35.0-47.0); HEMOGLOBIN 8.9 gm/dl (11.6-16.0); LYMPH % 30.7 % (16-45); MEAN CELL VOLUME 79.9 fl (81-97); MEAN CORPUSCULAR HGB CONC 28.6 g/dl (32-36); MEAN PLATELET VOLUME 11.6 fl (7.4-10.4); MONO % 10.2 % (0-9); PLATELET COUNT 339 K/uL (130-400); RED BLOOD COUNT 3.89 M/uL (3.80-5.40); WHITE BLOOD COUNT W/O DIFF 7.2 K/uL (4.2-12.2)
[2019-07-13 21:56] LABS: MEAN CORPUSCULAR HEMOGLOBIN 22.8 pg (27-33); URINE APPEARANCE CLEAR; URINE BILIRUBIN NEGATIVE (NEGATIVE); URINE BLOOD NEGATIVE (NEGATIVE); URINE COLOR YELLOW; URINE GLUCOSE (UA) NEGATIVE (NEGATIVE); URINE KETONE NEGATIVE (NEGATIVE); URINE LEUKOCYTE ESTERASE TRACE (NEGATIVE); URINE NITRITE NEGATIVE (NEGATIVE); URINE PROTEIN NEGATIVE (NEGATIVE); URINE UROBILINOGEN 0.2 E.U./dL (0.20 - 1.00)
[2019-07-13 22:02] LABS: BLOOD UREA NITROGEN 11 mg/dL (6-20); CREATININE 0.6 mg/dL (0.5-0.9); EST GLOMERULAR FILTRATION RATE > 60 mL/min
[2019-07-13 22:03] LABS: INR 2.4; LIPASE 29 U/L (13-60); PROTHROMBIN TIME (PATIENT) 23.3 SECONDS (9.5-12.1); TOTAL PROTEIN 6.9 g/dL (6.6-8.7); URINE EPITHELIAL CELLS 0 - 2 (FEW); URINE RBC 0 - 2 (NONE SEEN); URINE WBC 0 - 2 (0-2/hpf)
[2019-07-13 22:05] LABS: GLUCOSE,RANDOM 94 mg/dL (74-109)
[2019-07-13 22:07] LABS: ALB/GLOB RATIO 1.8 (1.1-1.8); ALBUMIN 4.4 g/dL (4.0-5.0); ALKALINE PHOSPHATASE 94 U/L (35-104); ALT/SGPT 33 U/L (<33); AST/SGOT 49 U/L (10.0-35.0)
[2019-07-13] MEDS ORDERED: MAGNESIUM HYDROXIDE/AL HYDROX 30 ML, LIDOCAINE VISC 2% 15ML 15 ML PO ONE ×2 (23:28)
[2019-07-13] MEDS ORDERED: PROMETHAZINE HCL 12.5 MG in 0.9 % SODIUM CHLORIDE 100ML 100 ML IVPB ONE (23:28)
[2019-07-13] MEDS ORDERED: HYDROMORPHONE HCL 2 MG/ML VIAL IVP ONE (23:28)
--- NOTE | 2019-07-13 23:51 | Emergency Department Record ---
History of Present Illness - General Chief Complaint: Abdominal Pain Stated Complaint: VOMITING, ABD PAIN, Time Seen by Provider: 07/13/19 21:10 Source: Patient Mode of Arrival: Ambulatory Limitations: No limitations - History of Present Illness Initial Comments: pt has been having increasing ap for weeks. she states she has pain in the upper abdomen with bloating, n/v/c/d. she has a hx of afib and a recent ablation as well as valve replacement. she has an appt w a gi doc in august. she is very frustrated with not feeling well and not knowing what is causing it. pt states her previous visit that her rectal was positive for blood MD Complaint: Abdominal pain Onset/Timin -: Month(s) Location: Epigastric, LUQ, RUQ Radiation: Back Severity: Moderate Severity scale (1-10): 1 Quality: Other Consistency: Constant Improves With: Nothing Worsens With: Nothing Associated Symptoms: Constipation, Diarrhea, Nausea, Vomiting - Related Data LMP Date: 06/15/19 Patient : No Home Medications Medication Instructions Recorded Confirmed Last Taken Diphenhydramine HCl [Benadryl] 1 cap PO DAILY PRN 07/13/19 07/13/19 07/12/19 Famotidine [Pepcid] 20 mg PO DAILY 07/13/19 07/13/19 07/13/19 Loratadine [Claritin] 1 tab PO DAILY 07/13/19 07/13/19 07/13/19 Polyethylene Glycol 3350 [Miralax] 1 units PO DAILY 07/13/19 07/13/19 07/13/19 Sotalol HCl [Sotalol] 80 mg PO BID 07/13/19 07/13/19 07/13/19 Allergies Allergy/AdvReac Type Severity Reaction Status Date / Time metoclopramide HCl AdvReac ALTERED Verified 07/01/19 14:16 [From Reglan] MENTAL STATUS phenazopyridine HCl AdvReac NAUSEA AND Verified 07/01/19 14:16 [From Pyridium] VOMITING Travel Screening - Travel/Exposure Within Last 30 Days Have you traveled within the last 30 days?: No - Travel/Exposure Within Last Year Have you traveled outside the [place] in the last year?: No - Additonal Travel Details Have you been exposed to anyone with a communicable illness?: No - Travel Symptoms Symptom Screening: None Review of Systems Reviewed: No additional complaints except as noted below Constitutional: Reports: As per HPI. Denies: Chills, Fever, Malaise, Night sweats, Weakness, Weight change Eyes: Reports: As per HPI. Denies: Eye discharge, Eye pain, Photophobia, Vision change ENT: Reports: As per HPI. Denies: Congestion, Dental pain, Ear pain, Epistaxis, Hearing loss, Throat pain Respiratory: Reports: As per HPI. Denies: Cough, Dyspnea, Hemoptysis, Stridor, Wheezes Cardiovascular: Reports: As per HPI. Denies: Arrhythmia, Chest pain, Dyspnea on exertion, Edema, Murmurs, Orthopnea, Palpitations, Paroxysmal nocturnal dyspnea, Rheumatic Fever, Syncope Endocrine: Reports: As per HPI. Denies: Fatigue, Heat or cold intolerance, Polydipsia, Polyuria Gastrointestinal: Reports: As per HPI, Abdominal pain, Constipation, Diarrhea, Nausea, Vomiting. Denies: Hematemesis, Hematochezia, Melena Genitourinary: Reports: As per HPI. Denies: Abnormal menses, Discharge, Dyspareunia, Dysuria, Frequency, Hematuria, Incontinence, Retention, Urgency Musculoskeletal: Reports: As per HPI. Denies: Arthralgia, Back pain, Gout, Joint swelling, Myalgia, Neck pain Skin: Reports: As per HPI. Denies: Bruising, Change in color, Change in hair/nails, Lesions, Pruritus, Rash Neurological: Reports: As per HPI. Denies: Abnormal gait, Confusion, Headache, Numbness, Paresthesias, Seizure, Tingling, Tremors, Vertigo, Weakness Psychiatric: Reports: As per HPI. Denies: Anxiety, Auditory hallucinations, Depression, Homicidal thoughts, Suicidal thoughts, Visual hallucinations Hematological/Lymphatic: Reports: As per HPI. Denies: Anemia, Blood Clots, Easy bleeding, Easy bruising, Swollen glands Past Medical History - SOCIAL HISTORY Smoking Status: Former smoker Alcohol Use: None Drug Use: None - RESPIRATORY Hx Respiratory Disorders: Yes Hx Bronchitis: Yes Hx Pneumonia: Yes - CARDIOVASCULAR Hx Cardio Disorders: Yes Hx Irregular Heartbeat: Yes (A-fib) Hx Palpitations: Yes Comment:: aortic stenosis, aneurysm - NEURO Hx Neuro Disorders: No - GI Hx GI Disorders: Yes Hx Reflux: Yes - Hx Genitourinary Disorders: Yes Hx Renal Disease: Yes - ENDOCRINE Hx Endocrine Disorders: No - MUSCULOSKELETAL Hx Musculoskeletal Disorders: No - PSYCH Hx Psych Problems: Yes Hx Anxiety: Yes - HEMATOLOGY/ONCOLOGY Hx Hematology/Oncology Disorders: No Family Medical History Any Significant Family History?: Yes Hx Heart Disease: Brother/Sister Physical Exam - General General Appearance: Alert, Oriented x3, Cooperative, Mild distress - Head Head exam: Normal inspection - Eye Eye exam: Normal appearance, PERRL, EOMI Pupils: Normal accommodation - ENT ENT exam: Normal exam, Mucous membranes moist, Normal external ear exam, Normal orophraynx Ear exam: Normal external inspection. negative: External canal tenderness Nasal Exam: Normal inspection. negative: Discharge, Sinus tenderness Mouth exam: Normal external inspection, Tongue normal Teeth exam: Normal inspection. negative: Dental caries Throat exam: Normal inspection. negative: Tonsillar erythema, Tonsillar exudate - Neck Neck exam: Normal inspection, Full ROM. negative: Tenderness - Respiratory Respiratory exam: Normal lung sounds bilaterally. negative: Respiratory distress - Cardiovascular Cardiovascular Exam: Regular rate, Normal rhythm, Normal heart sounds - GI/Abdominal GI/Abdominal exam: Soft, Normal bowel sounds, Distended, Guarding, Tenderness - Rectal Rectal exam: Heme (-) stool - exam: Deferred - Extremities Extremities exam: Normal inspection, Full ROM, Normal capillary refill. negative: Tenderness - Back Back exam: Reports: Normal inspection, Full ROM. Denies: Muscle spasm, Rash noted, Tenderness - Neurological Neurological exam: Alert, CN II-XII intact, Normal gait, Oriented X3 - Psychiatric Psychiatric exam: Normal affect, Normal mood - Skin Skin exam: Dry, Intact, Normal color, Warm Course Vital Signs 07/13/19 07/13/19 07/13/19 21:01 22:00 23:02 Temperature 98 F Pulse Rate [ 65 64 74 Pulse Ox Probe] Respiratory 20 20 Rate Blood Pressure 161/88 160/89 [Left Arm] Blood Pressure 151/73 [Right Arm] Pulse Ox 100 99 98 - Reevaluation(s) Reevaluation #1: 07/14/19 00:[address] shows 1.6cm calcified stone in gb lumen. cxr shows postop chgs Medical Decision Making - Lab Data Result diagrams: 07/13/19 21:20 07/13/19 21:20 Lab Results 08/28/19 08/28/19 08/28/19 Range/Units 21:20 21:20 21:20 WBC 7.2 (4.2-12.2) K/uL RBC 3.89 (3.80-5.40) M/uL Hgb 8.9 L (11.6-16.0) gm/dl Hct 31.1 L (35.0-47.0) % MCV 79.9 L (81-97) fl MCH 22.8 L (27-33) pg MCHC 28.6 L (32-36) g/dl RDW 17.0 H (11.5-14.5) % Plt Count 339 (130-400) K/uL MPV 11.6 H (7.4-10.4) fl Gran % 55.5 (47-80) % Lymphocytes % 30.7 (16-45) % Monocytes % 10.2 H (0-9) % Eosinophils % 3.3 (0-6) % Basophils % 0.3 (0-6) % Absolute Neutrophils 4.02 PT (9.5-12.1) SECONDS INR Sodium 142 (136-145) mmol/L Potassium 4.0 (3.4-4.5) mmol/L Chloride 107 (98-107) mmol/L Carbon Dioxide 22.0 (22-29) mmol/L Anion Gap 13.0 (7-16) BUN 11 (6-20) mg/dL Creatinine 0.6 (0.5-0.9) mg/dL Estimated GFR > 60 mL/min Random Glucose 94 (74-109) mg/dL Calcium 8.9 (8.6-10.0) mg/dL Total Bilirubin 0.20 (0.2-1.0) mg/dL AST 49 H (10.0-35.0) U/L ALT 33 (<33) U/L Alkaline Phosphatase 94 (35-104) U/L Troponin T (0-0.010) ng/mL Total Protein 6.9 (6.6-8.7) g/dL Albumin 4.4 (4.0-5.0) g/dL Globulin 2.5 (1.4-4.8) gm/dL Albumin/Globulin Ratio 1.8 (1.1-1.8) Lipase 29 (13-60) U/L Urine Color Yellow Urine Appearance Clear Urine pH 6.0 (5.0-8.0) Ur Specific [place] <= 1.005 (1.002-1.030) Urine Protein Negative (NEGATIVE) Urine Glucose (UA) Negative (NEGATIVE) Urine Ketones Negative (NEGATIVE) Urine Blood Negative (NEGATIVE) Urine Nitrite Negative (NEGATIVE) Urine Bilirubin Negative (NEGATIVE) Urine Urobilinogen 0.2 (0.20 - 1.00) E.U./dL Ur Leukocyte Esterase Trace H (NEGATIVE) Urine RBC 0 - 2 (NONE SEEN) Urine WBC 0 - 2 (0-2/hpf) Ur Epithelial Cells 0 - 2 (FEW) 07/13/19 07/13/19 Range/Units 21:20 21:20 WBC (4.2-12.2) K/uL RBC (3.80-5.40) M/uL Hgb (11.6-16.0) gm/dl Hct (35.0-47.0) % MCV (81-97) fl MCH (27-33) pg MCHC (32-36) g/dl RDW (11.5-14.5) % Plt Count (130-400) K/uL MPV (7.4-10.4) fl Gran % (47-80) % Lymphocytes % (16-45) % Monocytes % (0-9) % Eosinophils % (0-6) % Basophils % (0-6) % Absolute Neutrophils PT 23.3 H (9.5-12.1) SECONDS INR 2.4 Sodium (136-145) mmol/L Potassium (3.4-4.5) mmol/L Chloride (98-107) mmol/L Carbon Dioxide (22-29) mmol/L Anion Gap (7-16) BUN (6-20) mg/dL Creatinine (0.5-0.9) mg/dL Estimated GFR mL/min Random Glucose (74-109) mg/dL Calcium (8.6-10.0) mg/dL Total Bilirubin (0.2-1.0) mg/dL AST (10.0-35.0) U/L ALT (<33) U/L Alkaline Phosphatase (35-104) U/L Troponin T < 0.010 (0-0.010) ng/mL Total Protein (6.6-8.7) g/dL Albumin (4.0-5.0) g/dL Globulin (1.4-4.8) gm/dL Albumin/Globulin Ratio (1.1-1.8) Lipase (13-60) U/L Urine Color Urine Appearance Urine pH (5.0-8.0) Ur Specific [place] (1.002-1.030) Urine Protein (NEGATIVE) Urine Glucose (UA) (NEGATIVE) Urine Ketones (NEGATIVE) Urine Blood (NEGATIVE) Urine Nitrite (NEGATIVE) Urine Bilirubin (NEGATIVE) Urine Urobilinogen (0.20 - 1.00) E.U./dL Ur Leukocyte Esterase (NEGATIVE) Urine RBC (NONE SEEN) Urine WBC (0-2/hpf) Ur Epithelial Cells (FEW) Disposition Disposition: Transfer Clinical Impression: Cholelithiasis Qualifiers: Cholelithiasis location: gallbladder Cholecystitis presence: without cholecystitis Biliary obstruction: without biliary obstruction Qualified Code(s): K80.20 - Calculus of gallbladder without cholecystitis without obstruction GI bleed Qualifiers: GI bleed type/associated pathology: unspecified gastrointestinal hemorrhage type Qualified Code(s): K92.2 - Gastrointestinal hemorrhage, unspecified Anemia Qualifiers: Anemia type: other cause Other causes of anemia: acute posthemorrhagic Qualified Code(s): D62 - Acute posthemorrhagic anemia Disposition: Acute Care Hospital Transfer Transfer To: [facility] Reason For Transfer: needs gi Accepting Physician: dr garcia Time Discussed w/Accepting Physician: 00:45 Forms: Patient Portal Access Quality - Quality Measures Quality Measures: N/A - Blood Pressure Screening Does Patient Have Any of the Following: No Blood Pressure Classification: Pre-Hypertensive BP Reading Systolic Measurement: 146 Diastolic Measurement: 88 Screening for High Blood Pressure: < Pre-Hypertensive BP, F/U Documented > [G8950] Pre-Hypertensive Follow-up Interventions: Follow-up with rescreen every year.
--- NOTE | 2019-07-16 06:39 | CT SCAN REPORT ---
EXAM: CT SCAN ABDOMEN/PELVIS WO CONTRAST HISTORY: GENERALIZED ABDOMEN PAIN AND BLOATING. TECHNIQUE: Without administration of intravenous contrast, contiguous axial sections obtained through the abdomen and pelvis. Coronal and sagittal reformats. COMPARISON: 07/01/19 FINDINGS: Except for a small amount of dependent atelectasis, the visualized lung bases are clear. No free air evident within the abdomen or pelvis. Noncontrast technique limits evaluation of the solid organs. There is a renal stone present on the left measuring 3 mm. Mild hydronephrosis on the right as well as mild hydroureter. No ureteral or bladder stone visualized. Urinary bladder appears grossly unremarkable. Visualized solid organs otherwise grossly unremarkable as seen. No abdominal aorta aneurysm. Evaluation of the vasculature otherwise limited. GI tract is nondilated. Appendix appears normal. A few scattered diverticula of the distal colon without evidence for surrounding inflammatory change. No retroperitoneal or mesenteric adenopathy evident. Abdominal wall appears grossly intact. There are degenerative changes of the spine greatest at L5/S1. No pelvic mass visualized. The gallbladder appears abnormal with gallstones. IMPRESSION: 1. THERE IS A LEFT RENAL STONE PRESENT. NO URETERAL OR BLADDER STONE EVIDENT. MILD HYDRONEPHROSIS ON THE RIGHT. 2. CHOLELITHIASIS. 3. ADDITIONAL FINDINGS ABOVE. 4. A PRELIMINARY REPORT PROVIDED BY THE RADIOLOGIST ON-CALL. JOB NUMBER: [id number] MTDD
--- NOTE | 2019-07-18 06:50 | RADIOLOGY REPORT ---
EXAM: CHEST 2 VIEWS HISTORY: CHEST PRESSURE. COMPARISON: 02/26/19. TECHNIQUE: Frontal and lateral. FINDINGS: Study limited by overlying support equipment. Heart size appears upper limits of normal without change. Hilar and mediastinal borders appear stable with postsurgical changes. No focal lung consolidations, effusions, pneumothoraces evident. Curvilinear opacity at the left base appears stable, likely a focus of scarring. No rib lesions discretely imaged. IMPRESSION: NO ACUTE CHANGE EVIDENT RADIOGRAPHICALLY. DETAILS ABOVE. JOB NUMBER: [id number] [facility]
== END 2019-07-14 02:44 | disposition short-term general hospital (02) ==
LOC: ER 20:51
DX: K80.20 Calculus of gallbladder without cholecystitis without obstruction (principal); K92.2 Gastrointestinal hemorrhage, unspecified; D62 Acute posthemorrhagic anemia; Z95.2 Presence of prosthetic heart valve; I48.91 Unspecified atrial fibrillation; Z87.891 Personal history of nicotine dependence; I35.0 Nonrheumatic aortic (valve) stenosis
CPT/HCPCS: 99285 ×2; 96365; 96375; 83690; 85025; 85610; 80053; 81001; 84484; 71046; 74176; 93005; 93010; J1170; J2550; J7030

== ENCOUNTER 2019-08-29 17:54 | Emergency (ER) | payer BC ==
[2019-08-29] MEDS ORDERED: KETOROLAC 30 MG/ML VIAL IVP ONE (18:07)
--- NOTE | 2019-08-29 18:13 | Emergency Department Record ---
History of Present Illness - General Chief Complaint: Chest Pain Stated Complaint: CHEST PAIN Time Seen by Provider: 08/29/19 17:55 Source: Patient Mode of Arrival: Ambulatory Limitations: No limitations - History of Present Illness Initial Comments: 48 yo female presents to ED for evaluation of "sharp" chest pain that began this afternoon. Patient denies fevers, chills, cough, or recnet injury to the chest. 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 Patient reports recent 5 lb weight gain overnight as well, contacted her PCP who recommended doubling her lasix this afternoon. Patient does take warfarin for her mechanical valve, last INR was 2.9 yesterday. MD Complaint: Chest pain Onset/Timin -: Hour(s) Onset: During rest Pain Location: Left chest Pain Radiation: Neck Severity: Moderate Quality: Sharp Consistency: Constant Improves With: Nothing Worsens With: Nothing Treatments Prior to Arrival: None - Related Data On Oral Contraceptives: No Home Medications Medication Instructions Recorded Confirmed Last Taken Torsemide [Demadex] 10 mg PO DAILY 08/29/19 08/29/19 Unknown Allergies Allergy/AdvReac Type Severity Reaction Status Date / Time metoclopramide HCl AdvReac ALTERED Verified 07/01/19 14:16 [From Reglan] MENTAL STATUS phenazopyridine HCl AdvReac NAUSEA AND Verified 07/01/19 14:16 [From Pyridium] VOMITING Review of Systems Constitutional: Denies: Chills, Fever, Malaise, Night sweats Eyes: Denies: Eye discharge, Eye pain ENT: Denies: Congestion, Ear pain, Epistaxis Respiratory: Denies: Cough, Dyspnea Cardiovascular: Reports: Chest pain. Denies: Dyspnea on exertion, Edema Endocrine: Denies: Fatigue, Heat or cold intolerance Gastrointestinal: Denies: Abdominal pain, Nausea, Vomiting Genitourinary: Denies: Incontinence, Retention Musculoskeletal: Denies: Arthralgia, Back pain Skin: Denies: Bruising, Change in color Neurological: Denies: Abnormal gait, Confusion Psychiatric: Denies: Anxiety Hematological/Lymphatic: Reports: Easy bleeding, Easy bruising. Denies: Anemia, Blood Clots Past Medical History - SOCIAL HISTORY Smoking Status: Former smoker - RESPIRATORY Hx Respiratory Disorders: Yes Hx Bronchitis: Yes Hx Pneumonia: Yes - CARDIOVASCULAR Hx Cardio Disorders: Yes Hx Irregular Heartbeat: Yes (A-fib) Hx Palpitations: Yes Comment:: aortic stenosis, aneurysm - NEURO Hx Neuro Disorders: No - GI Hx GI Disorders: Yes Hx Reflux: Yes - Hx Genitourinary Disorders: Yes Hx Renal Disease: Yes - ENDOCRINE Hx Endocrine Disorders: No - MUSCULOSKELETAL Hx Musculoskeletal Disorders: No - PSYCH Hx Psych Problems: Yes Hx Anxiety: Yes - HEMATOLOGY/ONCOLOGY Hx Hematology/Oncology Disorders: No Family Medical History Hx Heart Disease: Brother/Sister Physical Exam - General General Appearance: Alert, Oriented x3, Cooperative, Moderate distress (due to intermittent pain symptoms) Limitations: No limitations - Head Head exam: Atraumatic, Normocephalic, Normal inspection Head exam detail: negative: Abrasion, Contusion, Mena's sign, General tenderness, Hematoma, Laceration - Eye Eye exam: Normal appearance. negative: Conjunctival injection, Periorbital swelling, Periorbital tenderness, Scleral icterus - ENT Ear exam: negative: Auricular hematoma, Auricular trauma Nasal Exam: negative: Active bleeding, Discharge, Dried blood, Foreign body Mouth exam: negative: Drooling, Laceration, Muffled voice, Tongue elevation - Neck Neck exam: Normal inspection. negative: Meningismus, Tenderness - Respiratory Respiratory exam: Normal lung sounds bilaterally. negative: Respiratory distress, Rhonchi, Stridor, Wheezes - Cardiovascular Cardiovascular Exam: Regular rate, Normal rhythm, Normal heart sounds - GI/Abdominal GI/Abdominal exam: Soft. negative: Distended, Rebound, Rigid, Tenderness - Rectal Rectal exam: Deferred - exam: Deferred - Extremities Extremities exam: Normal inspection. negative: Pedal edema, Tenderness - Back Back exam: Denies: CVA tenderness (R), CVA tenderness (L) - Neurological Neurological exam: Alert, Normal gait, Oriented X3 - Psychiatric Psychiatric exam: Normal affect, Normal mood - Skin Skin exam: Normal color. negative: Abrasion Type of lesion: negative: abrasion Course - Reevaluation(s) Reevaluation #1: 08/29/19 18:14 EKG: NSR 83 Normal axis, normal intervals Nonspecific ST-T wave changes Reevaluation #2: 08/29/19 19:29 Laboratory studies were reviewed and appear grossly unremarkable for an acute process except for the following: WBC 12.9 Hgb 9.7 INR 2.8 BNP 446 CRP 0.68 ESR [address] imaging at this time. Reevaluation #3: 08/29/19 20:00 patient was updated on all results thus far, CT imaging interpretation is pending. Will continue to monitor closely. Reevaluation #4: 08/29/19 20:42 CTA Chest/Abdomen: Previous co-arctation repair No acute chest pathology No aortic aneurysm or dissection on examination. Will perform repeat Troponin at 3-hours and reassess. Patient was updated on her CTA report, reports that she is feeling much improved following Toradol administration in ED. Will repeat Troponin at this time. Reevaluation #5: 08/29/19 22:40 Patient's repeat Troponin is negative for myocardial injury. Patient was updated on all results, history and examination appear c/w pleurisy. As the patient is taking Coumadin daily, NSAIDs are not indicated, recommended Tylenol 650-1000 mg every 6 hours as needed. Patient is other kathleen well appearing and stable for discharge at this time. Medical Decision Making - Lab Data Result diagrams: 08/29/19 18:35 08/29/19 18:35 Disposition Disposition: Discharge Clinical Impression: Atypical chest pain Disposition: Home, Self-Care Condition: (2) Stable Instructions: Pleurisy (ED) Additional Instructions: Return to ED if your symptoms worsen or if you have any concerns. Tylenol as directed. Follow-up with your family doctor in 1-3 days as directed. Forms: Patient Portal Access Time of Disposition: 22:39 Quality - Quality Measures Quality Measures: N/A - Blood Pressure Screening Does Patient Have Any of the Following: Active Dx of HTN Blood Pressure Classification: Hypertensive Reading Systolic Measurement: 160 Diastolic Measurement: 72 Screening for High Blood Pressure: Patient Exclusion, Hx of HTN [G9744]
[2019-08-29 18:45] LABS: ABSOLUTE NEUTROPHIL COUNT 8.46; BASO % 0.2 % (0-6); EOS % 2.7 % (0-6); GRAN % 65.8 % (47-80); HEMATOCRIT 32.8 % (35.0-47.0); HEMOGLOBIN 9.7 gm/dl (11.6-16.0); LYMPH % 21.5 % (16-45); MEAN CELL VOLUME 86.1 fl (81-97); MEAN CORPUSCULAR HGB CONC 29.6 g/dl (32-36); MEAN PLATELET VOLUME 10.2 fl (7.4-10.4); MONO % 9.8 % (0-9); PLATELET COUNT 456 K/uL (130-400); RED BLOOD COUNT 3.81 M/uL (3.80-5.40); WHITE BLOOD COUNT W/O DIFF 12.9 K/uL (4.2-12.2)
[2019-08-29 18:47] LABS: MEAN CORPUSCULAR HEMOGLOBIN 25.4 pg (27-33)
[2019-08-29 19:02] LABS: INR 2.8; PROTHROMBIN TIME (PATIENT) 27.2 SECONDS (9.5-12.1)
[2019-08-29 19:04] LABS: BLOOD UREA NITROGEN 16 mg/dL (6-20); CREATININE 0.7 mg/dL (0.5-0.9); EST GLOMERULAR FILTRATION RATE > 60 mL/min
[2019-08-29 19:05] LABS: TOTAL PROTEIN 7.1 g/dL (6.6-8.7)
[2019-08-29 19:07] LABS: GLUCOSE,RANDOM 98 mg/dL (74-109)
[2019-08-29 19:09] LABS: ALT/SGPT 20 U/L (<33)
[2019-08-29 19:10] LABS: ALB/GLOB RATIO 1.6 (1.1-1.8); ALBUMIN 4.4 g/dL (4.0-5.0); AST/SGOT 27 U/L (10.0-35.0); C-REACTIVE PROTEIN 0.62 mg/dL (<0.5)
[2019-08-29 19:22] LABS: ERYTHROCYTE SEDIMENTATION RATE 25 mm/hr (0-20)
[2019-08-29 19:34] LABS: ALKALINE PHOSPHATASE 100 U/L (35-104)
[2019-08-29] MEDS ORDERED: ACETAMINOPHEN 500 MG TABLET PO ONE (22:39)
--- NOTE | 2019-08-30 09:49 | CT ANGIOGRAM REPORT ---
EXAM: CT ANGIOGRAM OF THE CHEST AND ABDOMEN HISTORY: SHARP CHEST PAIN WITH HISTORY OF AORTIC REPAIR AND ANEURYSM. TECHNIQUE: CT angiogram of the chest and abdomen was obtained with 90 ml of Omnipaque 350. 2D and 3D MIP reconstruction was done with a dependent workstation. Comparison: CT of the abdomen and pelvis with contrast from 08/10/19. FINDINGS: VASCULAR STRUCTURE: The aorta shows no dissection. The aortic arch has the appearance of a possible coarctation. There is ectasia of the distal aortic arch just beyond the coarctation. The diameter is about 3.2 cm. The distal abdominal aortic branches are opacified with contrast including the celiac trunk, SMA, YAS, renal arteries, and common iliac arteries. LUNGS: Clear. MEDIASTINUM: No adenopathy, mass or hematoma. The airway is clear. The heart is of normal size without pericardial effusion. AXILLA AND SOFT TISSUES: No adenopathy. No suspicious soft tissue lesion. SKELETAL: There are old rib fractures on the right. There is no sign of acute rib pathology. The thoracic spine shows no suspicious finding. The sternum shows postop changes without any acute process. ABDOMEN: The liver, spleen, and pancreas appear unremarkable. The gallbladder is not visible. The biliary tree is not dilated. RETROPERITONEUM: The adrenal glands appear normal. The kidneys show no mass or hydronephrosis. There is no periaortic adenopathy or mass. ABDOMINAL WALL: The abdominal wall is intact. MESENTERY: No free air, fluid or adenopathy. GI: The GI tract no sign of obstruction, distention, wall thickening, or mass. IMPRESSION: 1. THE FINDINGS SUGGEST THAT THE PATIENT HAS HAD PREVIOUS COARCTATION OF THE AORTA. THERE IS ECTASIA OF THE DISTAL AORTIC ARCH, BUT THERE IS NO ANEURYSM OR DISSECTION OF THE AORTA. 2. NO EVIDENCE OF ANY OTHER ACUTE ABDOMINAL OR CHEST PATHOLOGY. JOB NUMBER: [id number] [facility]
== END 2019-08-29 22:54 | disposition home or self-care (01) ==
LOC: ER 17:54
DX: R07.89 Other chest pain (principal); I50.9 Heart failure, unspecified; I48.91 Unspecified atrial fibrillation; Z95.2 Presence of prosthetic heart valve; Z79.01 Long term (current) use of anticoagulants; Z87.891 Personal history of nicotine dependence; I48.20 Chronic atrial fibrillation, unspecified
CPT/HCPCS: 71275; 74175; 80053; 83880; 84484; 85025; 85610; 85651; 86140; 93005; 93010; 96374; 99284; J1885